=== PATIENT | female | born 1955 | race Caucasian/White ===

== ENCOUNTER 2017-01-03 11:26 | Day surgery (SDC) | payer BC ==
--- NOTE | ~2017-01-03 | OP ---
Record Of Operation [facility] [address] [place]. [address] NAME: SHEBA PARKS : 55 STATUS : [facility]#: [id number] AGE: 61 ADM/REG DATE : 01/03/17 MR#: [id number] REPORT SERV DATE: 01/03/17 DICTATED BY: DARIN PALMER JR. DATE: 01/03/17 REPORT STATUS : Draft TRANSCRIBED BY: MODL DATE: 01/03/17 DATE OF PROCEDURE: 01/03/2017 PREOPERATIVE DIAGNOSIS: End-stage renal disease. POSTOPERATIVE DIAGNOSIS: End-stage renal disease. OPERATION: Left upper extremity access graft (4-7 mm stepped graft). SURGEON: Darin Palmer M.D. VASCULAR FELLOW: Obdulia Tomas MD HISTORY: This is a 61-year-old white female with diabetes and renal failure and failing health. She started dialysis after open heart surgery several months ago. I was asked to place a graft in the left arm. DESCRIPTION OF PROCEDURE: The patient was placed on operating room table. The left arm was prepped and draped in the usual sterile manner. A transverse incision was made just proximal to the left antecubital crease where good search was made for cephalic and basilic vein. The either vein was large enough to use. We then dissected out the brachial artery. We made another incision just distal to the left axillary crease where a reasonable outflow axillary vein was identified. A Evelin-Wick tunneler was then used to tunnel a 4 to 7 mm stepped graft between both incisions. A small end of the graft was sewn to the side of the brachial artery with a running 6-0 Prolene suture. Care was taken to make sure that the small end of the graft was no longer than 2.5 cm. The other end of the graft (the large end) was then sewed in an end-to-end fashion to the outflow axillary vein with a running 6-0 Prolene suture with spatulation. The clamps were removed and there was excellent flow up through the entire graft. Both incisions were closed with 3-0 Vicryl deep and 4-0 Vicryl in the skin. The patient tolerated the procedure well and taken back to the recovery room in fair condition. There were no intraoperative complications. Estimated blood loss was negligible. DF/ROLA Darin Palmer Jr., M.D. / [id number] CC: Darin Palmer Jr., M.D. Record Of [address] [address] NAME: SHEBA PARKS : 55 STATUS : [facility] PAT#: [id number] AGE: 61 ADM/REG DATE : 01/03/17 MR#: [id number] REPORT SERV DATE: 01/03/17 DICTATED BY: DARIN PALMER JR. DATE: 01/03/17 REPORT STATUS : Draft TRANSCRIBED BY: RAYSAL DATE: 01/03/17 Flex Saul M.D.
[~2017-01-03 11:26] MED LIST: ALPHAGAN OPH; APRES50 PO; ARANESP100 IV; ASAB PO; BISR PR; BUM1 PO; CENTRUM PO; CONSTULOSE PO; COREG3 PO; COSOPT OPH; COZ50 PO; DSS PO; FLORASTOR250 MG PO; GLUCOPHAGE1000 MG PO; HEPA50006 SC; IMOD PO; JANUVIA100 MG PO; KDUR10 PO; KLOR-CON M1010 MEQ PO; L20 PO; LEVEMFLXPN SC; LEVEMIR; LEVEMIR SC; LIPITOR20 PO; LIPITOR40 PO; MAALOX PO; MIRALAX POWDER1 PKT PO; MOMUD PO; MULTIPLE VIT PO; MULTIVIT/MIN PO; NEUR300 PO; NEUR600 PO; NEXIUM40 PO; NITROII20C TOP; NORCO1 TA1 PO; NORV5 PO; NOVOLOG; NOVOLOG SC; NOVOPEN SC; PLAVIX PO; PREPARATIO2 PR; PROTONIX PO; PROVHFA INH; REST15 PO; SENTAB PO; T PO; TAPAZOLE5 MG PO; TIMOLOL MAL0.5 % OPH; TRUSOPT2 % OPH; VITC500 PO; XALAT OPH; Z5 PO; ZESTRIL10 MG PO; ZINC220C PO; ZOFRAN4 PO
[2017-01-03] MEDS ORDERED: PRILO (12:32)
[2017-01-03 12:33] LABS: HEMATOCRIT 34.7 % (36.0-48.0); HEMOGLOBIN 10.9 g/dL (12.0-16.0)
[2017-01-03 12:42] LABS: BUN (BLOOD UREA NITROGEN) 18 MG/DL (6-23); CALCIUM, SERUM 8.8 MG/DL (8.5-10.4); CHLORIDE, SERUM 99 MMOL/L (96-112); CO2 (CARBON DIOXIDE) 30 MMOL/L (24-34); CREATININE 4.81 MG/DL (0.55-1.02); GFR AFRICAN AMERICAN 11 ML/MIN (>=60); GFR NON AFRICAN AMERICAN 9 ML/MIN (>=60); GLUCOSE, SERUM 214 MG/DL (60-99); POTASSIUM, SERUM 3.6 MMOL/L (3.5-5.3); SODIUM, SERUM 139 MMOL/L (135-148)
[2017-01-12] MEDS ORDERED: ZOFRAN ODT4 MG PO (17:51)
[2017-01-12] MEDS ORDERED: NITROII20C TOP (17:51)
[2017-01-12] MEDS ORDERED: LIPITOR20 PO (17:51)
[2017-01-12] MEDS ORDERED: ASAB PO (17:52)
[2017-01-12] MEDS ORDERED: KLOR-CON M1010 MEQ PO (17:52)
[2017-01-12] MEDS ORDERED: COZ50 PO (17:52)
[2017-01-12] MEDS ORDERED: PLAVIX PO (17:52)
[2017-01-12] MEDS ORDERED: ALPHAGAN OPH (17:53)
[2017-01-12] MEDS ORDERED: COSOPT OPH (17:53)
[2017-02-26] MEDS ORDERED: PROTONIX PO (17:34)
[2017-02-26] MEDS ORDERED: LEVEMFLXPN SC (17:36)
[2017-02-26] MEDS ORDERED: NOVOPEN SQ (17:37)
[2017-02-26] MEDS ORDERED: PERCOCET1 TAB PO (17:39)
== END 2017-01-03 17:37 | disposition home or self-care (01) ==
LOC: SDC 11:26
PROVIDERS: Surgery
PROC: 03180JD Bypass Left Brachial Artery to Upper Arm Vein with Synthetic Substitute, Open Approach (ICD-10-PCS; principal; 2017-01-03 12:45)
DX: I12.0 Hypertensive chronic kidney disease with stage 5 chronic kidney disease or end stage renal disease (principal); N18.6 End stage renal disease; E11.22 Type 2 diabetes mellitus with diabetic chronic kidney disease; E11.39 Type 2 diabetes mellitus with other diabetic ophthalmic complication; M19.90 Unspecified osteoarthritis, unspecified site; H40.9 Unspecified glaucoma; Z99.2 Dependence on renal dialysis; Z95.1 Presence of aortocoronary bypass graft; Z88.4 Allergy status to anesthetic agent; Z88.5 Allergy status to narcotic agent; Z79.82 Long term (current) use of aspirin; Z79.02 Long term (current) use of antithrombotics/antiplatelets; Z79.4 Long term (current) use of insulin; Z79.899 Other long term (current) drug therapy
CPT/HCPCS: 36830; 80048; 82962; 85014; 85018; C1768; J0690; J2370; J3010

== ENCOUNTER 2017-01-12 18:19 | Inpatient (IN) | payer BC ==
--- NOTE | ~2017-01-12 | CN ---
Consultation Report [facility] [address] [place]. [address] NAME: SHEBA PARKS : 55 STATUS : ADM IN PAT#: [id number] AGE: 61 ADM/REG DATE : 01/12/17 MR#: [id number] REPORT SERV DATE: 01/13/17 DICTATED BY: DEANNA STEWARD DATE: 01/13/17 REPORT STATUS : Draft TRANSCRIBED BY: MODL DATE: 01/13/17 CONSULTATION REPORT. DATE OF CONSULTATION: 01/13/2017 Deanna Steward GEAR CHANGER with [facility], Thor[facility], Vascular surgeons. REASON FOR CONSULTATION: Possible sternal wound infection. HISTORY OF PRESENT ILLNESS: This is a pleasant 61-year-old female who is status post urgent CAB x4 on 11/24/[address] Flores. She also has a history of end-stage renal disease, now on dialysis. She has had a slowly healing sternal wound and reports that it opened up just about a week ago and started draining. She is evaluated by Renal in their office and the decision was made to admit her to the hospital for a sternal wound infection. She is currently on dialysis. She is afebrile with normal white count. She is little bit lethargic, but arousable. She is on cefepime and vancomycin per Nephrology with wound cultures currently pending. PAST MEDICAL HISTORY: Coronary artery disease, status post CAB; pulmonary hypertension; type 2 diabetes mellitus; end-stage renal disease; sleep apnea; hypertension. SOCIAL HISTORY: No tobacco or alcohol abuse or use of illicit drugs. She has good family support. SURGICAL HISTORY: Left knee surgery, hysterectomy, tonsillectomy, cataract surgery. HOME MEDICATIONS: Aspirin 81 mg per day, atorvastatin 20 mg p.o. daily, Alphagan drops one drop ophthalmically twice a day, Plavix 75 mg p.o. daily, dorzolamide one drop ophthalmically twice a day, losartan 50 mg p.o. daily, nitroglycerin one patch topically daily, Zofran 4 mg p.o. q.4 hours as needed, potassium chloride 10 mEq p.o. daily. ALLERGIES: FENTANYL, VERSED, AND MOST NARCOTICS AND BENZODIAZEPINES. REVIEW OF SYSTEMS: 12-point review of system was obtained and is negative other than HPI. PHYSICAL EXAMINATION: VITAL SIGNS: Temperature of 98.4, heart rate 85, blood pressure 128/62, respiratory rate 18, and O2 saturation 96% on room air. GENERAL: Pleasant female, in no acute distress. Lethargic. NEURO: Alert and oriented x3. Pupils exhibit PERRLA. HEENT: Head normocephalic and atraumatic. Sclerae clear. NECK: Supple. LUNGS: Clear to auscultation bilaterally with normal effort. CARDIAC: S1, S2. No murmurs, rubs, or gallops. Consultation Report [facility] [id number] [address] NAME: SHEBA PARKS : 55 STATUS : ADM IN [facility]#: [id number] AGE: 61 ADM/REG DATE : 01/12/17 MR#: [id number] REPORT SERV DATE: 01/13/17 DICTATED BY: DEANNA STEWARD DATE: 01/13/17 REPORT STATUS : Draft TRANSCRIBED BY: ROLA DATE: 01/13/17 ABDOMEN: Soft, obese, and nontender with active bowel sounds. EXTREMITIES: Free of cyanosis, clubbing, or edema. INCISION: There were several small areas of pinhole dehiscence along the middle portion of the sternal incision. There are also small areas of bridging of the skin between these areas that could break open with any type of stress. There is also tunneling between these dehisced areas, but that it does not go very deep. The bottom area of dehiscence tunnels approximately 1 cm toward the bottom of her sternal incision. There is a moderate amount of purulent drainage coming from the wound LABS: White blood cell count 6.1, hemoglobin 9.2, hematocrit 28, platelets 171. Sodium 139, potassium 3.8, chloride 100, bicarbonate 30, BUN 28, creatinine 5.3, and glucose 119. ASSESSMENT AND PLAN: This 61-year-old female who is two months out from bypass surgery. She has end-stage renal disease and diabetes and has had a poorly healing sternal wound, which has recently started to open up and does appear to be infectious, although she is not showing systemic signs of infection at this time. Currently, she is on broad- spectrum antibiotics. I would continue those for now. We will consult Wound Team to see if they can place a VAC pack. Discussed the plan of care with Dr. Flores. Would cover the area with Aquacel dressing and a dry dressing for now until Wound Team is able to evaluate her. We will get a CT scan of her chest without contrast to rule out any type of osteomyelitis or deeper sternal infection. We will hold the Plavix for now anticipating an eventual washout of her sternal incision. We would like to thank you for the consultation. JOHN/ROLA Deanna Steward NP / [id number] CC: Carissa Thayer M.D.
--- NOTE | ~2017-01-12 | DS ---
Discharge Summary [facility] [address] [place]. [address] NAME: SHEBA PARKS : 55 STATUS : DIS IN PAT#: [id number] AGE: 61 ADM/REG DATE : 01/12/17 MR#: [id number] REPORT SERV DATE: 02/06/17 DICTATED BY: OSKAR BARRON DATE: 02/05/17 REPORT STATUS : Draft TRANSCRIBED BY: ROLA DATE: 02/05/17 Data Collection from hospitalization DISCHARGE DIAGNOSES: 1. Infected sternal wound after coronary artery bypass grafting, status post incision and drainage of sternotomy wound with debridement of sternum. 2. Type 2 diabetes mellitus. 3. Hypertension. 4. End-stage renal disease. 5. Hyperlipidemia. 6. Coronary artery disease. CONSULTATIONS: 1. Marek Flores M.D. 2. Dakota Bernard M.D. 3. Salvatore Xiong M.D. PROCEDURES: 1. Incision and drainage of the sternotomy wound with debridement of sternum with pulse lavage irrigation and VAC pack wound dressing, 01/15/2017. 2. Delayed primary closure, sternectomy wound with bilateral pectoralis muscle flaps over subpectoral drain, 01/19/2017. 3. Venous Doppler ultrasound of the left upper extremity, 01/13/2017. 4. CT scan of the chest without contrast, 01/13/2017. DISCHARGE MEDICATIONS: 1. Vitamin C 1000 mg twice a day. 2. Aspirin 81 mg daily. 3. Lipitor 20 mg at bedtime. 4. Dulcolax 10 mg per rectum daily. 5. Brimonidine one drop twice a day. 6. Maxipime 2 g IV on Mondays, Wednesdays, and Fridays at 6:00 p.m. as instructed. 7. Cosopt one drop twice a day as instructed. 8. NovoLog injection insulin as instructed. 9. Cozaar 50 mg twice a day. 10.Protonix 40 mg before breakfast. 11.MiraLAX powder one packet daily. 12.Orazinc 220 mg daily. 13.Proventil 3 mL via inhaler every 6 hours as needed. 14.Levemir 5 units subcutaneously at bedtime. 15.Tylenol 650 mg orally or rectally every 4 hours as needed. 16.Mylanta 30 mL as needed. 17.Zofran 4 mg every 4 hours as needed. 18.Milk of magnesia 30 mL daily as needed. 19.Zofran 4 mg every 4 hours as needed. 20.Percocet 5/325 mg half to one tablet every 6 hours as needed. 21.Proventil 3 mL via inhaler as needed. Discharge Summary [facility] [address] [place]. [address] NAME: SHEBA PARKS : 55 STATUS : DIS IN PAT#: [id number] AGE: 61 ADM/REG DATE : 01/12/17 MR#: [id number] REPORT SERV DATE: 02/06/17 DICTATED BY: OSKAR BARRON DATE: 02/05/17 REPORT STATUS : Draft TRANSCRIBED BY: ROLA DATE: 02/05/17 CONDITION AT DISCHARGE: Stable. DISPOSITION: The patient was discharged to [facility] on an 1800-calorie cardiac/diabetic diet with activities as instructed. HOSPITAL COURSE: This is a 61-year-old female who has a history of end-stage renal disease, diabetes mellitus, hypertension, and coronary artery disease with a history of coronary artery bypass grafting in November 2016. She also has hyperlipidemia. She presented to the emergency room with complaints of sternal wound drainage. She said that she saw Dr. Flores on 01/01/2017 and the wound was healing nicely without any problems. Approximately one week prior to this admission she had a small area on the inferior portion of the wound that began to open and drain. Drainage increased significantly and her said that there were unable to stop it. She apparently received unknown antibiotics on the day prior to admission at dialysis and then came to the emergency room at this time due to these problems. Her chest x-ray showed no acute findings. Creatinine level was 4.6, potassium was 3.9. She denied any fever or other complaints regarding her sternal wound. She was having significant pain and swelling in the left upper extremity. She said that she had an AV graft placed by Dr. Palmer approximately a week prior to this admission. She was admitted to the hospital at this time for further evaluation and treatment. Upon admission, blood cultures were obtained as well as wound cultures. She was started on cefepime and vancomycin. Her home Percocet was continued. The following day, she was seen by Dr. Marek Flores. She was found to have poor wound healing of the sternotomy wound, it was felt that she may need to undergo sternotomy wound debridement in the operating room. Hemodialysis therapy was performed. A CT scan of the chest without contrast was performed as well as a venous Doppler ultrasound of the left upper extremity which was negative. On 01/15/2017, she was taken to the operating room where she underwent the above-mentioned procedure. She tolerated this well. There were no complications. On postop day #1, she had no new complaints. Hemodialysis therapy continued. On 01/18/2017, she was seen by Dr. Salvatore Xiong. Her spirits seemed to have improved. The current therapy was continued. The patient had poor healing down to the muscle, fascia, and sternum with necrosis including bone necrosis. A VAC pack was in place. Operative culture had grown Serratia. Plans were being made for her to undergo an attempt to cover the wound intraoperatively. She has been afebrile. Her chest x-ray showed no active disease. She was seen by Dr. Dakota Bernard, he felt that if all the infected bone was removed then we would treat this as just a soft tissue infection, so that the duration of antibiotics would be shorter, even two to three weeks. The Serratia was quite sensitive to antibiotics with her multiple options. We could use an antibiotic that was dosed in dialysis which may be easier for the patient. For now, we would continue with cefepime, but he felt we could stop the vancomycin postoperatively following closure. On 01/18/2017, she had no new complaints. Chest x-ray looked okay. Hemodialysis therapy was performed. There were several small areas of pinhole dehiscence along the middle portion of the sternal incision. There were small areas of bruising of skin between these areas that could break open. It was tunneling between dehisced areas, but very superficial. She had an episode of elevated blood pressure in the setting of her sternal debridement. Her losartan had been increased. Her clonidine would be added if needed. Aspirin and Discharge Summary [address] [place]. [address] NAME: SHEBA PARKS : 55 STATUS : DIS IN PAT#: [id number] AGE: 61 ADM/REG DATE : 01/12/17 MR#: [id number] REPORT SERV DATE: 02/06/17 DICTATED BY: OSKAR BARRON DATE: 02/05/17 REPORT STATUS : Draft TRANSCRIBED BY: MODL DATE: 02/05/17 Plavix had been continued. She was evaluated by Occupational Therapy. She was taken back to the operating room where she underwent the above-mentioned procedure by Dr. Marek Flores. She tolerated this well. There were no complications. Postoperatively, she was seen by Dr. Darin Palmer. The patient had an AV graft placed by [facility] approximately a week prior to this admission. She had been placed for dialysis. She has mild hand steal syndrome. The left hand was very warm. There was a positive Doppler flow in the left radial artery. She was to follow up with him in the office in two to three weeks. She had no complaints at this time with regard to the left hand or arm. On the , hemodialysis therapy continued. She did have some pain in the sternal wound. Her current treatment continued. Her appetite was beginning to improve. Her pain began to decrease. She was evaluated by Occupational and Physical Therapy. On 01/23/2017, she has been participating with Occupational and Physical Therapy. She underwent diabetes education. She had no new complaints. Drains were in place. She remained afebrile. The next day, discharge planning was performed. She tolerated hemodialysis therapy well. O2 saturation was 98% on room air. Her drain was removed. On 01/25/2017, she continued to progress. Discharge instructions were given. Due to her improved and stable condition, she was discharged to [facility] with the above-stated instructions. Information collected by: Yenny Gong I submit the above information as my discharge summary. TG/ROLA Oskar Barron M.D. / [id number] CC: Carissa Thayer M.D. Paul Cornea, M.D. Stephen Martin, M.D. Alexander Stratienko, M.D. Daniel Fisher Jr., M.D. [facility]
--- NOTE | ~2017-01-12 | CN ---
Consultation Report [facility] [address] [place]. [address] NAME: SHEBA PARKS : 55 STATUS : ADM IN PAT#: [id number] AGE: 61 ADM/REG DATE : 01/12/17 MR#: [id number] REPORT SERV DATE: 01/17/17 DICTATED BY: DAKOTA BARRETT DATE: 01/17/17 REPORT STATUS : Draft TRANSCRIBED BY: MODRonnie DATE: 01/17/17 INFECTIOUS DISEASE CONSULT DATE OF CONSULTATION: REASON FOR CONSULT: Sternal osteomyelitis. HISTORY OF PRESENT ILLNESS: A 61 years old white lady with end-stage renal disease, on hemodialysis, coronary artery disease, status post CABG in November 2016, pulmonary hypertension, diabetes, sleep apnea, glaucoma who was admitted for sternal incision and drainage. She had urgent CABG x4, including MARK to LAD on the 11/24/2016. She had a left IJ PermCath placed on 11/27/2016. She was discharged to rehab on 12/06/2016 only to be readmitted for five days on 12/09/2016 for bradycardia. On 01/03/2017, she had a left arm hemodialysis graft. On 01/12/2017, she was admitted for drainage at the lower sternal incision. Apparently, the wound opened just about a week prior but there is a lot of drainage. She was started on vancomycin and cefepime. A CT scan without contrast showed dehiscence of the lower sternal wound and a slightly nodular liver. The patient had no fever or chills. No nausea or vomiting. No shortness of breath. No urinary symptoms. Wound culture grew Serratia quite sensitive to antibiotics, resistant only to Ancef and cefuroxime. On 01/15/2017, she was taken to the operating room. There was poor healing down to the muscle fascia and sternum with necrosis including bone necrosis. I understand she had sternal resection and soft tissue debridement. A Vac-Pac was put on. Operative culture grew the same Serratia. Tomorrow, she is supposed to have attempt to cover the wound intraoperatively. She has been afebrile. Chest x-ray showed no active disease. Lab work shows a WBC of 8, hemoglobin 8, segments 57, and bands 1. PAST MEDICAL HISTORY: As I mentioned above plus history of glaucoma and cataract surgery, hysterectomy, and left knee surgery. SOCIAL HISTORY: She is . ALLERGIES: NONE TO ANTIBIOTICS. FAMILY HISTORY: Of diabetes, hypertension, and heart disease. MEDICATIONS ON ADMISSION: Aspirin, Lipitor, Alphagan eye drops, Plavix, Cosopt ophthalmic solution, losartan, and potassium. PHYSICAL EXAMINATION: GENERAL: On exam, she is sleepy but arousable. HEART: Regular rhythm. LUNGS: Decreased sounds but poor inspiratory effort due to the chest wound. No wheezing. Deep chest wound covered with a Vac-Pac. Consultation Report [address] [address] NAME: SHEBA PARKS : 55 STATUS : ADM IN [facility]#: [id number] AGE: 61 ADM/REG DATE : 01/12/17 MR#: [id number] REPORT SERV DATE: 01/17/17 DICTATED BY: DAKOTA BARRETT DATE: 01/17/17 REPORT STATUS : Draft TRANSCRIBED BY: ROLA DATE: 01/17/17 ABDOMEN: Soft. EXTREMITIES: Feet and hands are cool to touch. Left arm with some edema and ecchymosis around the surgical site. Left chest IJ PermCath site without erythema. ASSESSMENT AND PLAN: 1. 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 I understand she had a sternectomy. 2. Urgent CABG on 11/24/2016 including left internal mammary artery to LAD graft. 3. End-stage renal disease, on hemodialysis. She has two accesses but only the left IJ PermCath is used so far. 4. Diabetes. If all infected bone was removed, then we will treat just as a soft tissue infection so that duration of antibiotics would be shorter, even two to three weeks. The Serratia is quite sensitive to antibiotics with her multiple options. We could use an antibiotic that is dosed in dialysis which may be easier for the patient. For now, continue with the cefepime but I think we could stop the vancomycin postop tomorrow. PC/RAYSAL Dakota Barrett M.D. / [id number] CC: Carissa Thayer M.D.
--- NOTE | ~2017-01-12 | HP ---
History And Physical [place] [id number] [facility] [place]. [address] NAME: SHEBA OJEDA : 55 STATUS : ADM IN [facility]#: [id number] AGE: 61 ADM/REG DATE : 01/12/17 MR#: [id number] REPORT SERV DATE: 01/15/17 DICTATED BY: NATALIA CLAUDIO DATE: 01/12/17 REPORT STATUS : Draft TRANSCRIBED BY: MODL DATE: 01/12/17 DATE OF ADMISSION: 01/12/2017 CHIEF COMPLAINT: Drainage from sternal wound. HISTORY OF PRESENT ILLNESS: Ms Ojeda is a pleasant 61-year-old white female with past medical history of recent ESRD, diabetes mellitus, hypertension, coronary artery disease with history of CABG 11/24/2016 as well as hyperlipidemia, who presents to the ER with complaints of sternal wound drainage. She states that she saw Dr. Flores on 01/01/2017 and the wound was healing nicely without any problems. Approximately one week ago, she had a small area on the inferior portion of the wound that began to open and drain. The drainage has increased significantly and her states "we have been unable to stop it." She apparently received unknown antibiotics yesterday at dialysis and came onto the ER today due to problems outlined above. On presentation, she had a chest x-ray, which had no acute findings. WBC is 6.2, and BUN and creatinine were 22 and 4.6 with a potassium of 3.9. She denies any fever or other complaints regarding her sternal wound. She is having significant pain and swelling in her left upper extremity. She states that she had an AV graft placed by Dr. Darin Palmer approximately a week ago. PAST MEDICAL HISTORY: 1. End-stage renal disease with recent initiation of dialysis with right IJ PermCath. She has a left upper extremity AV graft placed recently as well. She dialyzes Sunday, , Sunday at [facility]. 2. Diabetes mellitus. 3. Hypertension. 4. Coronary artery disease with history of CABG on 11/24/2016. 5. Hyperlipidemia. PAST SURGICAL HISTORY: 1. CABG. 2. Right IJ PermCath placement. 3. Hysterectomy. 4. Left knee surgery, not otherwise specified. 5. Cataract removal. 6. Left upper extremity AV graft placement. ALLERGIES: BENZODIAZEPINES, IV NARCOTICS, VERSED. SHE IS TAKING PERCOCET WITH NO PROBLEMS. SOCIAL HISTORY: No alcohol, tobacco, or drug use. She is with a supportive . FAMILY HISTORY: Mother had congestive heart failure, two years ago. Father is living at age 84, has diabetes and hypertension. REVIEW OF SYSTEMS: All systems reviewed and negative excluding those mentioned and highlighted in history of present illness. History And Physical [address] [address] NAME: SHEBA OJEDA : 55 STATUS : ADM IN [facility]#: [id number] AGE: 61 ADM/REG DATE : 01/12/17 MR#: [id number] REPORT SERV DATE: 01/15/17 DICTATED BY: NATALIA CLAUDIO DATE: 01/12/17 REPORT STATUS : Draft TRANSCRIBED BY: ROLA DATE: 01/12/17 HOME MEDICATIONS: 1. Zofran 4 mg q.4h p.r.n. nausea, vomiting. 2. Potassium chloride 10 mEq daily. 3. Plavix 75 daily. 4. Losartan 50 mg daily. 5. Atorvastatin 20 mg daily. 6. Nitroglycerin patch 0.4 mg p.r.n. chest pain. 7. Aspirin 81 mg daily. 8. NovoLog insulin 5 units with meals. 9. Levemir 7 units subcu at bedtime. PHYSICAL EXAMINATION: VITAL SIGNS: Blood pressure 150/70 at bedside, pulse 80s, respiratory rate 18. GENERAL: This is a pleasant white female resting comfortably, in no acute distress. HEENT: Normocephalic, atraumatic. Oropharynx clear. No exudate. NECK: Supple. No JVD or thyromegaly. No carotid bruits. Trachea midline. No stridor. CARDIOVASCULAR: Regular rate and rhythm. S1, S2 without rubs or gallops. Point of maximal impulse nondisplaced. RESPIRATORY: Clear to auscultation bilaterally. No wheeze, rhonchi, tachypnea, or accessory muscles in use. GI: Abdomen soft, nontender, nondistended. No hepatosplenomegaly appreciated. EXTREMITIES: No cyanosis, clubbing. Lower extremities 1+ pretibial edema. Left upper extremity has 1 to 2+ pitting edema extending up to her shoulder. SKIN: She has some skin breakdown at the lower portion of her sternal wound, which is draining serosanguineous fluid. Left arm has ecchymoses over her graft. There is a bruit and thrill over her graft. LYMPH: No supraclavicular, cervical, inguinal, axillary adenopathy. NEURO: Cranial nerves 2 through 12 grossly intact. Motor sensory examinations within normal limits. LABS AND DIAGNOSTIC DATA: WBC 6.2, hemoglobin 10.2, hematocrit 32.2, platelets 166, neutrophils 60.3%. Sodium 138, potassium 3.9, chloride 100, bicarb 29, BUN 22, creatinine 4.6, glucose 211. ASSESSMENT: 1. Sternal wound infection, status post coronary artery bypass graft, 11/24/2016. 2. End-stage renal disease with recent hemodialysis initiation. 3. Swollen left upper extremity, status post arteriovenous graft placement. 4. Hypertension. 5. Diabetes mellitus type 2. PLAN: 1. Consult Dr. Flores for further evaluation and treatment of sternal wound. 2. Check blood cultures and sensitivities and wound cultures and sensitivities and start vancomycin and cefepime. 3. Hemodialysis, 01/13/2017. History And Physical [address] [address] NAME: SHEBA OJEDA : 55 STATUS : ADM IN [facility]#: [id number] AGE: 61 ADM/REG DATE : 01/12/17 MR#: [id number] REPORT SERV DATE: 01/15/17 DICTATED BY: NATALIA CLAUDIO DATE: 01/12/17 REPORT STATUS : Draft TRANSCRIBED BY: MODL DATE: 01/12/17 4. Home medications. 5. We will continue her home Percocet as needed. This has not been an allergy and she has tolerated this without event. Partner to see in the morning. [facility]/RAYSAL Natalia Claudio M.D. / [id number] CC: Carissa Thayer M.D.
--- NOTE | ~2017-01-12 | CN ---
Consultation Report [place] [id number] [facility] [place]. [address] NAME: SHEBA PARKS : 55 STATUS : ADM IN PAT#: [id number] AGE: 61 ADM/REG DATE : 01/12/17 MR#: [id number] REPORT SERV DATE: 01/15/17 DICTATED BY: MAREK CAMARGO DATE: 01/15/17 REPORT STATUS : Draft TRANSCRIBED BY: MODL DATE: 01/15/17 CONSULTATION DATE OF CONSULTATION: 01/13/2017 PERTINENT HISTORY: The patient is a 61-year-old female, approximately seven weeks status post coronary artery bypass grafting procedure with known history of severe diabetes mellitus and renal insufficiency, on dialysis at present, who returns to the hospital for multiple medical reasons and found to have poor wound healing of the sternotomy wound. Consultation with Thoracic Surgery was then obtained. PAST MEDICAL HISTORY: Significant for the coronary artery bypass grafting performed on 11/24/2016. The patient has a history of hypertension, coronary artery disease, hyperlipidemia, diabetes mellitus, renal insufficiency, and COPD. SOCIAL HISTORY: Positive for tobacco and ethanol use. FAMILY HISTORY: Noncontributory. REVIEW OF SYSTEMS: Significant for increased discomfort and drainage from the midportion of sternotomy wound. Denied fever or chills. PHYSICAL EXAMINATION: VITAL SIGNS: Afebrile. Blood pressure 140/70, heart rate is 70. GENERAL: She is in no acute distress. Alert and oriented x3. NEUROLOGIC: Intact. NECK: No bruits noted in her neck. No adenopathy of her neck. CHEST: Had breath sounds bilaterally. HEART: Regular rate and rhythm. No obvious murmur. Sternotomy wound showed eschar along the mid lower portion. The sternum appeared to be stable, difficult to examine, but relatively nontender, no cellulitis, no purulent discharge from the wound. ABDOMEN: Soft and nontender without masses. EXTREMITIES: Warm and dry. : Normal. SKIN: Showed no rash. IMPRESSION: At this time is poor wound healing of the sternotomy wound status post coronary artery bypass grafting. The plan is to proceed with the sternotomy wound debridement in the operating room. /MODL Consultation Report [place] [id number] [facility] [place]. [address] NAME: SHEBA PARKS : 55 STATUS : ADM IN PAT#: [id number] AGE: 61 ADM/REG DATE : 01/12/17 MR#: [id number] REPORT SERV DATE: 01/15/17 DICTATED BY: MAREK CAMARGO DATE: 01/15/17 REPORT STATUS : Draft TRANSCRIBED BY: ROLA DATE: 01/15/17 Marek Camargo M.D. / [id number] CC: Carissa Thayer M.D.
--- NOTE | ~2017-01-12 | OP ---
Record Of Operation [facility] [address] [place]. [address] NAME: SHEBA PARKS : 55 STATUS : ADM IN [facility]#: [id number] AGE: 61 ADM/REG DATE : 01/12/17 MR#: [id number] REPORT SERV DATE: 01/19/17 DICTATED BY: MAREK FLORES DATE: 01/19/17 REPORT STATUS : Draft TRANSCRIBED BY: MODL DATE: 01/19/17 DATE OF PROCEDURE: 01/19/2017 PREOPERATIVE DIAGNOSIS: Status post debridement of the sternotomy wound with sternectomy. POSTOPERATIVE DIAGNOSIS: Status post debridement of the sternotomy wound with sternectomy, now ready for delayed primary closure. OPERATIVE PROCEDURE: Delayed primary closure, sternectomy wound, with bilateral pectoralis muscle flaps, over subpectoral drains. OPERATIVE SURGEON: Marek Flores M.D. ANESTHESIA: General endotracheal anesthesia, AA. DRAINS PLACED: A 24-Estonian Melvin drains x2 in the subpectoral space. OPERATIVE PROCEDURE: The patient was taken to the operating room and placed in supine position. Anesthesia was obtained. The patient was prepped and draped in usual fashion. The previous opened sternotomy wound with sternectomy and was then debrided of devitalized tissue. Bilateral pectoralis muscle flaps were developed with electrocautery. The space was irrigated with 2 L of pulse lavage saline. Hemostasis was obtained with electrocautery. A #24 Melvin drains x2 were placed in the subpectoral space. A #2 Tevdek retention sutures were placed x4. The midline fascia was approximated with running 0 Stratafix suture. The retention sutures were then tied. The skin was approximated with 3-0 nylon vertical mattress sutures and interrupted type, and skin clips. A sterile dressing was applied. The patient tolerated the procedure well and was taken back to the recovery room in stable condition. ESAU/ROLA Marek Flores M.D. / [id number] CC: Carissa Thayer M.D.
--- NOTE | ~2017-01-12 | OP ---
Record Of Operation [facility] [address] [place]. [address] NAME: SHEBA PARKS : 55 STATUS : ADM IN PAT#: [id number] AGE: 61 ADM/REG DATE : 01/12/17 MR#: [id number] REPORT SERV DATE: 01/15/17 DICTATED BY: MAREK FLORES DATE: 01/15/17 REPORT STATUS : Draft TRANSCRIBED BY: MODL DATE: 01/15/17 DATE OF PROCEDURE: 01/15/2017 PREOPERATIVE DIAGNOSES: Status post coronary bypass grafting, diabetes mellitus and chronic renal disease, now with poor sternotomy wound healing. POSTOPERATIVE DIAGNOSES: Status post coronary bypass grafting, diabetes mellitus and chronic renal disease, now with poor sternotomy wound healing. No obvious signs of sternal infection but with necrotic sternum. OPERATIVE PROCEDURE: Incision and drainage of the sternotomy wound with debridement of sternum, pulse lavage irrigation, and Vac-Pac wound dressing. OPERATIVE SURGEON: Marek Flores M.D. ANESTHESIA: General anesthesia, AA. DRAINS: No drains were placed. OPERATIVE PROCEDURE: The patient was taken to the operating room, placed in supine position. Anesthesia was obtained. The patient was prepped and draped in usual fashion. Incision was made through the old sternotomy incision. There is poor wound healing in the mid to lower portion. The wound was opened and found to have no sign of purulence. No sign of cellulitis with very poor wound healing. Along the entire length, the subcutaneous space was debrided. Suture material was removed. Dissection was continued to the level of the pectoralis major fascia which also showed poor wound healing. This layer closure was opened exposing the sternum which showed very poor healing of the sternum with necrotic bone. The sternal cables were removed. Necrotic bone was all debrided with rongeur and curette. Hemostasis was obtained with electrocautery. Soft tissue was debrided of any devitalized tissue. All suture material was debrided. The wound was irrigated with 3 L of pulse lavage saline. A Vac-Pac sponge large size was cut to the appropriate dimensions, placed within the wound. Benzoin was placed along the edges of the skin, and Vac-Pac dressing was applied in the usual manner and placed to -125 suction. The Vac-Pac dressing held with negative pressure. The patient tolerated procedure well. She was taken back to operating room and taken to recovery room in stable condition. ESAU/ROLA Marek Flores M.D. / [id number] CC: Record Of Operation [address] [place] [address] NAME: SHEBA PARKS : 55 STATUS : ADM IN PAT#: [id number] AGE: 61 ADM/REG DATE : 01/12/17 MR#: [id number] REPORT SERV DATE: 01/15/17 DICTATED BY: MAREK FLORES DATE: 01/15/17 REPORT STATUS : Draft TRANSCRIBED BY: ROLA DATE: 01/15/17 James Macdonald M.D.
[2017-01-12 15:37] LABS: BASOPHILS 0.2 %; BASOPHILS ABSOLUTE 0.01 10/3/uL (0.0-0.16); EOSINOPHILS 1.6 %; ER CBC TAT 0 Hrs 09 Mins; HEMATOCRIT 32.2 % (36.0-48.0); HEMOGLOBIN 10.2 g/dL (12.0-16.0); IMMATURE GRANULOCYTES 0.2 %; LYMPHOCYTES 21.9 %; LYMPHOCYTES ABSOLUTE 1.36 10/3/uL (0.67-4.30); MEAN CORPUS HGB CONC 31.7 g/dL (32.0-36.0); MEAN CORPUSCULAR HEMOGLOB 30.4 pg (26.0-34.0); MEAN PLATELET VOLUME 9.7 fL (9.2-13.0); MONOCYTES 15.8 %; MONOCYTES ABSOLUTE 0.98 10/3/uL (0.21-1.20); NEUTROPHILS 60.3 %; NEUTROPHILS ABSOLUTE 3.75 10/3/uL (2.02-8.40); RBC DISTRIBUTION WIDTH 16.1 % (12.0-16.0); WHITE BLOOD CELLS 6.2 10/3/uL (4.5-10.5)
[2017-01-12 15:38] LABS: MEAN CORPUSCULAR VOLUME 96.1 fL (80-100); PLATELET COUNT 166 10/3/uL (150-400); RED CELL COUNT 3.35 10/6/uL (4.0-5.6)
[2017-01-12 15:39] LABS: IMMATURE GRANULOCYTES ABSOLUTE 0.01 10/3/uL (0.0-0.11); MANUAL DIFF NO %
[2017-01-12 15:44] LABS: INTERNATIONAL NORMAL RATI 1.2 UNITS (-); PROTIME (NOT ORD) 15.2 SEC (12.0-14.5)
[2017-01-12 15:53] LABS: BUN (BLOOD UREA NITROGEN) 22 MG/DL (6-23); CALCIUM, SERUM 8.6 MG/DL (8.5-10.4); CHEST PAIN PROFILE TAT 0 Hrs 25 Mins; CHLORIDE, SERUM 100 MMOL/L (96-112); CO2 (CARBON DIOXIDE) 29 MMOL/L (24-34); CREATININE 4.66 MG/DL (0.55-1.02); GFR AFRICAN AMERICAN 11 ML/MIN (>=60); GFR NON AFRICAN AMERICAN 9 ML/MIN (>=60); GLUCOSE, SERUM 211 MG/DL (60-99); POTASSIUM, SERUM 3.9 MMOL/L (3.5-5.3); SODIUM, SERUM 138 MMOL/L (135-148); TROPONIN I <0.02 NG/ML (<0.05)
[2017-01-12 16:07] LABS: BAND NEUTROPHILS 1 %; EOSINOPHILS 1 %; EOSINOPHILS ABSOLUTE (CALC) 0.06 10/3/uL (0.0-0.53); ER DIFF TAT 0 Hrs 39 Mins; LYMPHOCYTES 14 %; LYMPHOCYTES ABSOLUTE (CALC) 0.87 10/3/uL (0.67-4.30); MONOCYTES 8 %; NEUTROPHILS ABSOLUTE (CALC) 4.77 10/3/uL (2.02-8.40); PLATELET ESTIMATE ADQ (ADEQUATE); SEGMENTED NEUTROPHIL (0) 76 %; TOTAL NUCLEATED CELLS 100
[2017-01-12 16:08] LABS: HELMET CELLS OCC (0-2/OIF)
[~2017-01-12 18:19] MED LIST changes: +PRILO; +ZOFRAN ODT4 MG PO
[2017-01-13 08:58] LABS: BASOPHILS 0.3 %; BASOPHILS ABSOLUTE 0.02 10/3/uL (0.0-0.16); EOSINOPHILS 2.5 %; EOSINOPHILS ABSOLUTE 0.15 10/3/uL (0.0-0.53); HEMOGLOBIN 9.2 g/dL (12.0-16.0); IMMATURE GRANULOCYTES 0.2 %; IMMATURE GRANULOCYTES ABSOLUTE 0.01 10/3/uL (0.0-0.11); LYMPHOCYTES 22.1 %; LYMPHOCYTES ABSOLUTE 1.34 10/3/uL (0.67-4.30); MEAN CORPUS HGB CONC 32.9 g/dL (32.0-36.0); MEAN CORPUSCULAR VOLUME 94.3 fL (80-100); MEAN PLATELET VOLUME 9.8 fL (9.2-13.0); MONOCYTES 15.5 %; MONOCYTES ABSOLUTE 0.94 10/3/uL (0.21-1.20); NEUTROPHILS 59.4 %; PLATELET COUNT 171 10/3/uL (150-400); RBC DISTRIBUTION WIDTH 16.2 % (12.0-16.0); RED CELL COUNT 2.97 10/6/uL (4.0-5.6); WHITE BLOOD CELLS 6.1 10/3/uL (4.5-10.5)
[2017-01-13 09:02] LABS: MANUAL DIFF NO %
[2017-01-13 09:18] LABS: ALBUMIN 2.2 G/DL (3.5-5.0); BUN (BLOOD UREA NITROGEN) 28 MG/DL (6-23); CALCIUM, SERUM 8.4 MG/DL (8.5-10.4); CHLORIDE, SERUM 100 MMOL/L (96-112); CO2 (CARBON DIOXIDE) 30 MMOL/L (24-34); CREATININE 5.32 MG/DL (0.55-1.02); GFR AFRICAN AMERICAN 9 ML/MIN (>=60); GFR NON AFRICAN AMERICAN 8 ML/MIN (>=60); GLUCOSE, SERUM 119 MG/DL (60-99); PHOSPHORUS, SERUM 4.6 MG/DL (2.5-4.5); POTASSIUM, SERUM 3.8 MMOL/L (3.5-5.3); SODIUM, SERUM 139 MMOL/L (135-148)
[2017-01-14 08:16] LABS: ALBUMIN 2.2 G/DL (3.5-5.0); CALCIUM, SERUM 8.5 MG/DL (8.5-10.4); CHLORIDE, SERUM 103 MMOL/L (96-112); CO2 (CARBON DIOXIDE) 27 MMOL/L (24-34); POTASSIUM, SERUM 3.7 MMOL/L (3.5-5.3); SODIUM, SERUM 139 MMOL/L (135-148)
[2017-01-14 08:18] LABS: BUN (BLOOD UREA NITROGEN) 20 MG/DL (6-23); CREATININE 4.09 MG/DL (0.55-1.02); GFR AFRICAN AMERICAN 13 ML/MIN (>=60); GFR NON AFRICAN AMERICAN 11 ML/MIN (>=60); GLUCOSE, SERUM 173 MG/DL (60-99); PHOSPHORUS, SERUM 3.3 MG/DL (2.5-4.5)
[2017-01-15 11:18] LABS: BASOPHILS 0.6 %; BASOPHILS ABSOLUTE 0.03 10/3/uL (0.0-0.16); EOSINOPHILS 5.1 %; EOSINOPHILS ABSOLUTE 0.28 10/3/uL (0.0-0.53); HEMATOCRIT 31.8 % (36.0-48.0); HEMOGLOBIN 10.3 g/dL (12.0-16.0); IMMATURE GRANULOCYTES 0.4 %; IMMATURE GRANULOCYTES ABSOLUTE 0.02 10/3/uL (0.0-0.11); LYMPHOCYTES 32.1 %; LYMPHOCYTES ABSOLUTE 1.75 10/3/uL (0.67-4.30); MANUAL DIFF NO %; MEAN CORPUS HGB CONC 32.4 g/dL (32.0-36.0); MEAN CORPUSCULAR HEMOGLOB 30.9 pg (26.0-34.0); MEAN CORPUSCULAR VOLUME 95.5 fL (80-100); MEAN PLATELET VOLUME 9.7 fL (9.2-13.0); MONOCYTES 14.1 %; MONOCYTES ABSOLUTE 0.77 10/3/uL (0.21-1.20); NEUTROPHILS 47.7 %; PLATELET COUNT 208 10/3/uL (150-400); RBC DISTRIBUTION WIDTH 16.2 % (12.0-16.0); RED CELL COUNT 3.33 10/6/uL (4.0-5.6); WHITE BLOOD CELLS 5.5 10/3/uL (4.5-10.5)
[2017-01-15 11:34] LABS: CALCIUM, SERUM 8.9 MG/DL (8.5-10.4); CHLORIDE, SERUM 101 MMOL/L (96-112); CO2 (CARBON DIOXIDE) 28 MMOL/L (24-34); SODIUM, SERUM 141 MMOL/L (135-148)
[2017-01-15 11:35] LABS: BUN (BLOOD UREA NITROGEN) 35 MG/DL (6-23); CREATININE 5.49 MG/DL (0.55-1.02); GFR AFRICAN AMERICAN 9 ML/MIN (>=60); GFR NON AFRICAN AMERICAN 8 ML/MIN (>=60); GLUCOSE, SERUM 121 MG/DL (60-99); POTASSIUM, SERUM 4.5 MMOL/L (3.5-5.3)
[2017-01-16 08:42] LABS: BASOPHILS 0.3 %; BASOPHILS ABSOLUTE 0.02 10/3/uL (0.0-0.16); EOSINOPHILS 4.1 %; EOSINOPHILS ABSOLUTE 0.28 10/3/uL (0.0-0.53); HEMOGLOBIN 8.9 g/dL (12.0-16.0); IMMATURE GRANULOCYTES 0.3 %; IMMATURE GRANULOCYTES ABSOLUTE 0.02 10/3/uL (0.0-0.11); LYMPHOCYTES 25.9 %; LYMPHOCYTES ABSOLUTE 1.76 10/3/uL (0.67-4.30); MEAN CORPUS HGB CONC 31.8 g/dL (32.0-36.0); MEAN CORPUSCULAR HEMOGLOB 30.4 pg (26.0-34.0); MEAN CORPUSCULAR VOLUME 95.6 fL (80-100); MEAN PLATELET VOLUME 9.9 fL (9.2-13.0); MONOCYTES 18.1 %; MONOCYTES ABSOLUTE 1.23 10/3/uL (0.21-1.20); NEUTROPHILS 51.3 %; NEUTROPHILS ABSOLUTE 3.48 10/3/uL (2.02-8.40); PLATELET COUNT 227 10/3/uL (150-400); RBC DISTRIBUTION WIDTH 16.2 % (12.0-16.0); RED CELL COUNT 2.93 10/6/uL (4.0-5.6); WHITE BLOOD CELLS 6.8 10/3/uL (4.5-10.5)
[2017-01-16 08:49] LABS: MANUAL DIFF NO %
[2017-01-16 08:53] LABS: CALCIUM, SERUM 8.8 MG/DL (8.5-10.4); CHLORIDE, SERUM 104 MMOL/L (96-112); POTASSIUM, SERUM 5.2 MMOL/L (3.5-5.3); SODIUM, SERUM 140 MMOL/L (135-148)
[2017-01-16 08:54] LABS: BUN (BLOOD UREA NITROGEN) 45 MG/DL (6-23); CO2 (CARBON DIOXIDE) 23 MMOL/L (24-34); CREATININE 6.36 MG/DL (0.55-1.02); GFR AFRICAN AMERICAN 8 ML/MIN (>=60); GFR NON AFRICAN AMERICAN 6 ML/MIN (>=60); GLUCOSE, SERUM 93 MG/DL (60-99); PHOSPHORUS, SERUM 5.2 MG/DL (2.5-4.5)
[2017-01-17 04:31] LABS: HEMATOCRIT 26.9 % (36.0-48.0); HEMOGLOBIN 8.3 g/dL (12.0-16.0); MEAN CORPUS HGB CONC 30.9 g/dL (32.0-36.0); MEAN CORPUSCULAR HEMOGLOB 29.9 pg (26.0-34.0); MEAN CORPUSCULAR VOLUME 96.8 fL (80-100); MEAN PLATELET VOLUME 10.3 fL (9.2-13.0); PLATELET COUNT 186 10/3/uL (150-400); RBC DISTRIBUTION WIDTH 16.3 % (12.0-16.0); RED CELL COUNT 2.78 10/6/uL (4.0-5.6); WHITE BLOOD CELLS 8.8 10/3/uL (4.5-10.5)
[2017-01-17 04:33] LABS: MANUAL DIFF YES %
[2017-01-17 04:37] LABS: ALBUMIN 1.8 G/DL (3.5-5.0); CALCIUM, SERUM 8.4 MG/DL (8.5-10.4); CHLORIDE, SERUM 103 MMOL/L (96-112); CO2 (CARBON DIOXIDE) 25 MMOL/L (24-34); GLUCOSE, SERUM 111 MG/DL (60-99); POTASSIUM, SERUM 4.3 MMOL/L (3.5-5.3); SODIUM, SERUM 140 MMOL/L (135-148)
[2017-01-17 04:38] LABS: BUN (BLOOD UREA NITROGEN) 28 MG/DL (6-23); CREATININE 4.49 MG/DL (0.55-1.02); GFR AFRICAN AMERICAN 11 ML/MIN (>=60); GFR NON AFRICAN AMERICAN 10 ML/MIN (>=60); PHOSPHORUS, SERUM 3.9 MG/DL (2.5-4.5)
[2017-01-17 04:45] LABS: BAND NEUTROPHILS 1 %; BASOPHILS 1 %; BASOPHILS ABSOLUTE (CALC) 0.09 10/3/uL (0.0-0.16); EOSINOPHILS 3 %; EOSINOPHILS ABSOLUTE (CALC) 0.26 10/3/uL (0.0-0.53); LYMPHOCYTES 32 %; LYMPHOCYTES ABSOLUTE (CALC) 2.82 10/3/uL (0.67-4.30); MONOCYTES 6 %; MONOCYTES ABSOLUTE (CALC) 0.53 10/3/uL (0.21-1.20); PLATELET ESTIMATE ADQ (ADEQUATE); RBC MORPHOLOGY NORM (NORMAL); SEGMENTED NEUTROPHIL (0) 57 %; TOTAL NUCLEATED CELLS 100
[2017-01-18 04:42] LABS: ALBUMIN 1.9 G/DL (3.5-5.0); ALKALINE PHOSPHATASE 77 U/L (45-117); BUN (BLOOD UREA NITROGEN) 40 MG/DL (6-23); CALCIUM, SERUM 8.6 MG/DL (8.5-10.4); CHLORIDE, SERUM 101 MMOL/L (96-112); CO2 (CARBON DIOXIDE) 26 MMOL/L (24-34); CREATININE 5.64 MG/DL (0.55-1.02); DIRECT BILIRUBIN < 0.1 MG/DL (0.0-0.4); GFR AFRICAN AMERICAN 9 ML/MIN (>=60); GFR NON AFRICAN AMERICAN 8 ML/MIN (>=60); GLUCOSE, SERUM 111 MG/DL (60-99); INDIRECT BILIRUBIN(NOT ORDER) 0.3 MG/DL (0.1-0.9); POTASSIUM, SERUM 4.4 MMOL/L (3.5-5.3); SGOT(AST) 13 U/L (5-40); SGPT(ALT) < 6 U/L (5-65); SODIUM, SERUM 138 MMOL/L (135-148); TOTAL BILIRUBIN 0.4 MG/DL (0-1.2); TOTAL PROTEIN 5.8 G/DL (6.0-8.5)
[2017-01-18 07:15] LABS: BASOPHILS 0.3 %; BASOPHILS ABSOLUTE 0.02 10/3/uL (0.0-0.16); EOSINOPHILS 4.6 %; EOSINOPHILS ABSOLUTE 0.36 10/3/uL (0.0-0.53); HEMATOCRIT 25.6 % (36.0-48.0); HEMOGLOBIN 8.2 g/dL (12.0-16.0); IMMATURE GRANULOCYTES 0.4 %; IMMATURE GRANULOCYTES ABSOLUTE 0.03 10/3/uL (0.0-0.11); LYMPHOCYTES 25.8 %; LYMPHOCYTES ABSOLUTE 2.01 10/3/uL (0.67-4.30); MEAN CORPUSCULAR HEMOGLOB 29.8 pg (26.0-34.0); MEAN PLATELET VOLUME 9.8 fL (9.2-13.0); MONOCYTES 10.5 %; MONOCYTES ABSOLUTE 0.82 10/3/uL (0.21-1.20); NEUTROPHILS 58.4 %; NEUTROPHILS ABSOLUTE 4.56 10/3/uL (2.02-8.40); PLATELET COUNT 220 10/3/uL (150-400); RBC DISTRIBUTION WIDTH 16.2 % (12.0-16.0); RED CELL COUNT 2.75 10/6/uL (4.0-5.6); WHITE BLOOD CELLS 7.8 10/3/uL (4.5-10.5)
[2017-01-18 07:17] LABS: MANUAL DIFF NO %; MEAN CORPUSCULAR VOLUME 93.1 fL (80-100)
[2017-01-18 11:50] LABS: HEMOGLOBIN 8.9 g/dL (12.0-16.0)
[2017-01-18 11:51] LABS: HEMATOCRIT 29.5 % (36.0-48.0)
[2017-01-18 14:00] LABS: BUN (BLOOD UREA NITROGEN) 13 MG/DL (6-23); CALCIUM, SERUM 8.2 MG/DL (8.5-10.4); CHLORIDE, SERUM 107 MMOL/L (96-112); CO2 (CARBON DIOXIDE) 26 MMOL/L (24-34); SODIUM, SERUM 141 MMOL/L (135-148)
[2017-01-18 14:01] LABS: CREATININE 2.51 MG/DL (0.55-1.02); GFR AFRICAN AMERICAN 23 ML/MIN (>=60); GFR NON AFRICAN AMERICAN 20 ML/MIN (>=60); GLUCOSE, SERUM 194 MG/DL (60-99)
[2017-01-19 05:11] LABS: INTERNATIONAL NORMAL RATI 1.1 UNITS (-); PARTIAL THROMBO TIME 30.3 SEC (22.5-37.2); PROTIME (NOT ORD) 14.4 SEC (12.0-14.5)
[2017-01-19 05:17] LABS: BASOPHILS 0.3 %; BASOPHILS ABSOLUTE 0.02 10/3/uL (0.0-0.16); EOSINOPHILS 4.5 %; HEMATOCRIT 26.7 % (36.0-48.0); HEMOGLOBIN 8.6 g/dL (12.0-16.0); IMMATURE GRANULOCYTES 0.4 %; IMMATURE GRANULOCYTES ABSOLUTE 0.03 10/3/uL (0.0-0.11); LYMPHOCYTES 22.3 %; LYMPHOCYTES ABSOLUTE 1.49 10/3/uL (0.67-4.30); MEAN CORPUS HGB CONC 32.2 g/dL (32.0-36.0); MEAN CORPUSCULAR HEMOGLOB 31.4 pg (26.0-34.0); MEAN PLATELET VOLUME 9.8 fL (9.2-13.0); MONOCYTES 14.5 %; MONOCYTES ABSOLUTE 0.97 10/3/uL (0.21-1.20); NEUTROPHILS ABSOLUTE 3.86 10/3/uL (2.02-8.40); PLATELET COUNT 213 10/3/uL (150-400); RBC DISTRIBUTION WIDTH 16.1 % (12.0-16.0); RED CELL COUNT 2.74 10/6/uL (4.0-5.6); WHITE BLOOD CELLS 6.7 10/3/uL (4.5-10.5)
[2017-01-19 05:18] LABS: CALCIUM, SERUM 8.3 MG/DL (8.5-10.4); CHLORIDE, SERUM 108 MMOL/L (96-112); CO2 (CARBON DIOXIDE) 23 MMOL/L (24-34); POTASSIUM, SERUM 4.5 MMOL/L (3.5-5.3); SODIUM, SERUM 144 MMOL/L (135-148)
[2017-01-19 05:19] LABS: MANUAL DIFF NO %; MEAN CORPUSCULAR VOLUME 97.4 fL (80-100)
[2017-01-19 05:25] LABS: BUN (BLOOD UREA NITROGEN) 19 MG/DL (6-23); CREATININE 3.61 MG/DL (0.55-1.02); GFR AFRICAN AMERICAN 15 ML/MIN (>=60); GFR NON AFRICAN AMERICAN 13 ML/MIN (>=60); GLUCOSE, SERUM 124 MG/DL (60-99); PHOSPHORUS, SERUM 2.7 MG/DL (2.5-4.5)
[2017-01-19 11:28] LABS: BASOPHILS 0.1 %; BASOPHILS ABSOLUTE 0.01 10/3/uL (0.0-0.16); EOSINOPHILS 4.7 %; EOSINOPHILS ABSOLUTE 0.34 10/3/uL (0.0-0.53); HEMATOCRIT 26.8 % (36.0-48.0); HEMOGLOBIN 8.3 g/dL (12.0-16.0); IMMATURE GRANULOCYTES 0.4 %; IMMATURE GRANULOCYTES ABSOLUTE 0.03 10/3/uL (0.0-0.11); LYMPHOCYTES 22.4 %; LYMPHOCYTES ABSOLUTE 1.61 10/3/uL (0.67-4.30); MEAN CORPUSCULAR HEMOGLOB 30.3 pg (26.0-34.0); MEAN CORPUSCULAR VOLUME 97.8 fL (80-100); MEAN PLATELET VOLUME 9.4 fL (9.2-13.0); MONOCYTES 15.7 %; MONOCYTES ABSOLUTE 1.13 10/3/uL (0.21-1.20); NEUTROPHILS 56.7 %; NEUTROPHILS ABSOLUTE 4.07 10/3/uL (2.02-8.40); PLATELET COUNT 234 10/3/uL (150-400); RBC DISTRIBUTION WIDTH 16.4 % (12.0-16.0); RED CELL COUNT 2.74 10/6/uL (4.0-5.6); WHITE BLOOD CELLS 7.2 10/3/uL (4.5-10.5)
[2017-01-19 11:29] LABS: MANUAL DIFF NO %
[2017-01-19 11:41] LABS: BUN (BLOOD UREA NITROGEN) 21 MG/DL (6-23); CALCIUM, SERUM 8.3 MG/DL (8.5-10.4); CHLORIDE, SERUM 107 MMOL/L (96-112); CO2 (CARBON DIOXIDE) 26 MMOL/L (24-34); CREATININE 3.73 MG/DL (0.55-1.02); GFR AFRICAN AMERICAN 14 ML/MIN (>=60); GFR NON AFRICAN AMERICAN 12 ML/MIN (>=60); GLUCOSE, SERUM 129 MG/DL (60-99); POTASSIUM, SERUM 4.4 MMOL/L (3.5-5.3); SODIUM, SERUM 141 MMOL/L (135-148)
[2017-01-20 03:54] LABS: BASOPHILS 0.2 %; BASOPHILS ABSOLUTE 0.02 10/3/uL (0.0-0.16); EOSINOPHILS 4.1 %; EOSINOPHILS ABSOLUTE 0.41 10/3/uL (0.0-0.53); HEMOGLOBIN 8.3 g/dL (12.0-16.0); IMMATURE GRANULOCYTES 0.3 %; IMMATURE GRANULOCYTES ABSOLUTE 0.03 10/3/uL (0.0-0.11); LYMPHOCYTES 15.2 %; LYMPHOCYTES ABSOLUTE 1.51 10/3/uL (0.67-4.30); MEAN CORPUS HGB CONC 31.9 g/dL (32.0-36.0); MEAN CORPUSCULAR HEMOGLOB 31.2 pg (26.0-34.0); MEAN CORPUSCULAR VOLUME 97.7 fL (80-100); MEAN PLATELET VOLUME 9.6 fL (9.2-13.0); MONOCYTES 11.5 %; MONOCYTES ABSOLUTE 1.14 10/3/uL (0.21-1.20); NEUTROPHILS 68.7 %; NEUTROPHILS ABSOLUTE 6.81 10/3/uL (2.02-8.40); PLATELET COUNT 232 10/3/uL (150-400); RBC DISTRIBUTION WIDTH 16.2 % (12.0-16.0); RED CELL COUNT 2.66 10/6/uL (4.0-5.6); WHITE BLOOD CELLS 9.9 10/3/uL (4.5-10.5)
[2017-01-20 03:55] LABS: MANUAL DIFF NO %
[2017-01-20 04:06] LABS: CALCIUM, SERUM 8.3 MG/DL (8.5-10.4); CHLORIDE, SERUM 104 MMOL/L (96-112); CO2 (CARBON DIOXIDE) 24 MMOL/L (24-34); GFR AFRICAN AMERICAN 11 ML/MIN (>=60); GFR NON AFRICAN AMERICAN 10 ML/MIN (>=60); GLUCOSE, SERUM 119 MG/DL (60-99); POTASSIUM, SERUM 5.2 MMOL/L (3.5-5.3); SODIUM, SERUM 140 MMOL/L (135-148)
[2017-01-20 04:07] LABS: BUN (BLOOD UREA NITROGEN) 26 MG/DL (6-23); CREATININE 4.64 MG/DL (0.55-1.02)
[2017-01-21 05:45] LABS: BASOPHILS 0.2 %; BASOPHILS ABSOLUTE 0.02 10/3/uL (0.0-0.16); EOSINOPHILS 2.9 %; EOSINOPHILS ABSOLUTE 0.31 10/3/uL (0.0-0.53); HEMOGLOBIN 7.1 g/dL (12.0-16.0); IMMATURE GRANULOCYTES 0.3 %; IMMATURE GRANULOCYTES ABSOLUTE 0.03 10/3/uL (0.0-0.11); LYMPHOCYTES 20.3 %; LYMPHOCYTES ABSOLUTE 2.16 10/3/uL (0.67-4.30); MEAN CORPUS HGB CONC 31.6 g/dL (32.0-36.0); MEAN CORPUSCULAR HEMOGLOB 30.9 pg (26.0-34.0); MEAN CORPUSCULAR VOLUME 97.8 fL (80-100); MEAN PLATELET VOLUME 9.9 fL (9.2-13.0); MONOCYTES 13.3 %; MONOCYTES ABSOLUTE 1.41 10/3/uL (0.21-1.20); PLATELET COUNT 193 10/3/uL (150-400); RBC DISTRIBUTION WIDTH 16.7 % (12.0-16.0); WHITE BLOOD CELLS 10.6 10/3/uL (4.5-10.5)
[2017-01-21 05:49] LABS: HEMATOCRIT 22.5 % (36.0-48.0); MANUAL DIFF NO %
[2017-01-21 06:01] LABS: ALBUMIN 2.1 G/DL (3.5-5.0); BUN (BLOOD UREA NITROGEN) 17 MG/DL (6-23); CALCIUM, SERUM 8.5 MG/DL (8.5-10.4); CHLORIDE, SERUM 107 MMOL/L (96-112); CO2 (CARBON DIOXIDE) 26 MMOL/L (24-34); CREATININE 3.65 MG/DL (0.55-1.02); GFR AFRICAN AMERICAN 15 ML/MIN (>=60); GFR NON AFRICAN AMERICAN 13 ML/MIN (>=60); GLUCOSE, SERUM 112 MG/DL (60-99); PHOSPHORUS, SERUM 2.9 MG/DL (2.5-4.5); POTASSIUM, SERUM 4.4 MMOL/L (3.5-5.3); SODIUM, SERUM 143 MMOL/L (135-148)
[2017-01-22 07:21] LABS: BASOPHILS 0.2 %; BASOPHILS ABSOLUTE 0.02 10/3/uL (0.0-0.16); EOSINOPHILS 3.5 %; EOSINOPHILS ABSOLUTE 0.36 10/3/uL (0.0-0.53); HEMATOCRIT 24.6 % (36.0-48.0); HEMOGLOBIN 7.8 g/dL (12.0-16.0); IMMATURE GRANULOCYTES 0.2 %; IMMATURE GRANULOCYTES ABSOLUTE 0.02 10/3/uL (0.0-0.11); LYMPHOCYTES 23.2 %; MANUAL DIFF NO %; MEAN CORPUS HGB CONC 31.7 g/dL (32.0-36.0); MEAN CORPUSCULAR HEMOGLOB 31.2 pg (26.0-34.0); MEAN CORPUSCULAR VOLUME 98.4 fL (80-100); MEAN PLATELET VOLUME 9.9 fL (9.2-13.0); MONOCYTES 11.7 %; MONOCYTES ABSOLUTE 1.21 10/3/uL (0.21-1.20); NEUTROPHILS 61.2 %; NEUTROPHILS ABSOLUTE 6.34 10/3/uL (2.02-8.40); PLATELET COUNT 252 10/3/uL (150-400); RBC DISTRIBUTION WIDTH 16.8 % (12.0-16.0); WHITE BLOOD CELLS 10.4 10/3/uL (4.5-10.5)
[2017-01-22 07:36] LABS: ALBUMIN 2.2 G/DL (3.5-5.0); CALCIUM, SERUM 8.8 MG/DL (8.5-10.4); CHLORIDE, SERUM 102 MMOL/L (96-112); CO2 (CARBON DIOXIDE) 24 MMOL/L (24-34); GLUCOSE, SERUM 95 MG/DL (60-99); POTASSIUM, SERUM 4.5 MMOL/L (3.5-5.3); SODIUM, SERUM 141 MMOL/L (135-148)
[2017-01-22 07:37] LABS: BUN (BLOOD UREA NITROGEN) 28 MG/DL (6-23); CREATININE 5.11 MG/DL (0.55-1.02); GFR AFRICAN AMERICAN 10 ML/MIN (>=60); GFR NON AFRICAN AMERICAN 8 ML/MIN (>=60); PHOSPHORUS, SERUM 4.6 MG/DL (2.5-4.5)
[2017-01-23 06:36] LABS: HEMOGLOBIN 7.4 g/dL (12.0-16.0); MEAN CORPUS HGB CONC 32.2 g/dL (32.0-36.0); MEAN CORPUSCULAR VOLUME 96.2 fL (80-100); MEAN PLATELET VOLUME 9.7 fL (9.2-13.0); PLATELET COUNT 238 10/3/uL (150-400); RBC DISTRIBUTION WIDTH 16.8 % (12.0-16.0); RED CELL COUNT 2.39 10/6/uL (4.0-5.6); WHITE BLOOD CELLS 7.3 10/3/uL (4.5-10.5)
[2017-01-23 06:38] LABS: MANUAL DIFF YES %
[2017-01-23 06:48] LABS: ALBUMIN 2.2 G/DL (3.5-5.0); CALCIUM, SERUM 8.4 MG/DL (8.5-10.4); CHLORIDE, SERUM 104 MMOL/L (96-112); CO2 (CARBON DIOXIDE) 27 MMOL/L (24-34); GLUCOSE, SERUM 95 MG/DL (60-99); POTASSIUM, SERUM 4.3 MMOL/L (3.5-5.3); SODIUM, SERUM 141 MMOL/L (135-148)
[2017-01-23 06:49] LABS: BUN (BLOOD UREA NITROGEN) 16 MG/DL (6-23); CREATININE 3.39 MG/DL (0.55-1.02); GFR AFRICAN AMERICAN 16 ML/MIN (>=60); GFR NON AFRICAN AMERICAN 14 ML/MIN (>=60); PHOSPHORUS, SERUM 2.7 MG/DL (2.5-4.5)
[2017-01-23 06:58] LABS: BAND NEUTROPHILS 5 %; BASOPHILS 1 %; BASOPHILS ABSOLUTE (CALC) 0.07 10/3/uL (0.0-0.16); EOSINOPHILS 4 %; EOSINOPHILS ABSOLUTE (CALC) 0.29 10/3/uL (0.0-0.53); LYMPHOCYTES 18 %; LYMPHOCYTES ABSOLUTE (CALC) 1.31 10/3/uL (0.67-4.30); MONOCYTES 4 %; MONOCYTES ABSOLUTE (CALC) 0.29 10/3/uL (0.21-1.20); NEUTROPHILS ABSOLUTE (CALC) 5.33 10/3/uL (2.02-8.40); PLATELET ESTIMATE ADQ (ADEQUATE); SEGMENTED NEUTROPHIL (0) 68 %; TOTAL NUCLEATED CELLS 100
[2017-01-23 06:59] LABS: OVALOCYTES 1+ (3-10/OIF) (0-2/OIF); POIKILOCYTOSIS 1+ (5-10/OIF) (0-5/OIF); POLYCHROMASIA 1+ (2-5/OIF) (0-1/OIF); TOXIC GRANULATION 1+
[2017-01-24 12:14] LABS: BASOPHILS 0.6 %; BASOPHILS ABSOLUTE 0.02 10/3/uL (0.0-0.16); EOSINOPHILS 2.8 %; EOSINOPHILS ABSOLUTE 0.09 10/3/uL (0.0-0.53); HEMATOCRIT 23.4 % (36.0-48.0); HEMOGLOBIN 7.3 g/dL (12.0-16.0); IMMATURE GRANULOCYTES 0.6 %; IMMATURE GRANULOCYTES ABSOLUTE 0.02 10/3/uL (0.0-0.11); LYMPHOCYTES 36.9 %; LYMPHOCYTES ABSOLUTE 1.17 10/3/uL (0.67-4.30); MEAN CORPUS HGB CONC 31.2 g/dL (32.0-36.0); MEAN CORPUSCULAR HEMOGLOB 30.8 pg (26.0-34.0); MEAN CORPUSCULAR VOLUME 98.7 fL (80-100); MEAN PLATELET VOLUME 9.8 fL (9.2-13.0); MONOCYTES 6.3 %; NEUTROPHILS 52.8 %; NEUTROPHILS ABSOLUTE 1.67 10/3/uL (2.02-8.40); PLATELET COUNT 204 10/3/uL (150-400); RBC DISTRIBUTION WIDTH 17.2 % (12.0-16.0); RED CELL COUNT 2.37 10/6/uL (4.0-5.6)
[2017-01-24 12:16] LABS: MANUAL DIFF NO %; WHITE BLOOD CELLS 3.2 10/3/uL (4.5-10.5)
[2017-01-24 12:29] LABS: ALBUMIN 2.3 G/DL (3.5-5.0); BUN (BLOOD UREA NITROGEN) 19 MG/DL (6-23); CALCIUM, SERUM 8.5 MG/DL (8.5-10.4); CHLORIDE, SERUM 103 MMOL/L (96-112); CO2 (CARBON DIOXIDE) 27 MMOL/L (24-34); CREATININE 3.71 MG/DL (0.55-1.02); GFR AFRICAN AMERICAN 14 ML/MIN (>=60); GFR NON AFRICAN AMERICAN 12 ML/MIN (>=60); GLUCOSE, SERUM 144 MG/DL (60-99); PHOSPHORUS, SERUM 2.5 MG/DL (2.5-4.5); POTASSIUM, SERUM 3.8 MMOL/L (3.5-5.3); SODIUM, SERUM 142 MMOL/L (135-148)
[2017-02-26] MEDS ORDERED: PROTONIX PO (17:34)
[2017-02-26] MEDS ORDERED: LEVEMFLXPN SC (17:36)
[2017-02-26] MEDS ORDERED: NOVOPEN SQ (17:37)
[2017-02-26] MEDS ORDERED: PERCOCET1 TAB PO (17:39)
== END 2017-01-25 16:29 | DRG 856 ==
LOC: ER 18:19 → 5NO 19:17 → CVICU 01-15 20:01 → 5NO 01-20 12:09
PROVIDERS: Anesthesiology; Hospitalist; Internal Medicine Nephrology; Thoracic Surgery (Cardiothoracic Vascular Surgery)
PROC: 0PB00ZZ Excision of Sternum, Open Approach (ICD-10-PCS; principal; 2017-01-15 13:15)
PROC: 5A1D60Z (ICD-10-PCS; 2017-01-16)
PROC: 0KXJ0ZZ Transfer Left Thorax Muscle, Open Approach (ICD-10-PCS; 2017-01-19)
PROC: 0KXH0ZZ Transfer Right Thorax Muscle, Open Approach (ICD-10-PCS; 2017-01-19)
DX: T81.4XXA Infection following a procedure, initial encounter (principal); N18.6 End stage renal disease; I12.0 Hypertensive chronic kidney disease with stage 5 chronic kidney disease or end stage renal disease; T82.898A Other specified complication of vascular prosthetic devices, implants and grafts, initial encounter; M86.9 Osteomyelitis, unspecified; M87.9 Osteonecrosis, unspecified; E13.69 Other specified diabetes mellitus with other specified complication; E11.22 Type 2 diabetes mellitus with diabetic chronic kidney disease; Y83.8 Other surgical procedures as the cause of abnormal reaction of the patient, or of later complication, without mention of misadventure at the time of the procedure; F17.210 Nicotine dependence, cigarettes, uncomplicated; I25.10 Atherosclerotic heart disease of native coronary artery without angina pectoris; E78.5 Hyperlipidemia, unspecified; J44.9 Chronic obstructive pulmonary disease, unspecified; H40.9 Unspecified glaucoma; B96.89 Other specified bacterial agents as the cause of diseases classified elsewhere; Z79.02 Long term (current) use of antithrombotics/antiplatelets; Z95.1 Presence of aortocoronary bypass graft; Z79.82 Long term (current) use of aspirin; Z79.4 Long term (current) use of insulin; Z90.710 Acquired absence of both cervix and uterus; Z98.890 Other specified postprocedural states; Z79.899 Other long term (current) drug therapy; Z83.3 Family history of diabetes mellitus; Z82.49 Family history of ischemic heart disease and other diseases of the circulatory system; Z88.5 Allergy status to narcotic agent; Z88.8 Allergy status to other drugs, medicaments and biological substances; Z72.89 Other problems related to lifestyle; Z99.2 Dependence on renal dialysis
CPT/HCPCS: 36415; 71010; 71020; 71250; 80048; 80069; 80076; 80202; 82962; 83735; 84484; 85014; 85018; 85025; 85610; 85730; 86850; 86900; 86901; 86920; 87015; 87040; 87070; 87075; 87077; 87102; 87116; 87186; 87205; 87641; 93005; 93971; 94640; 97110-GO; 97162-GP; 97167-GO; 97535-GO; 99285; A9270-GY; G0257; J0692; J0713; J0885; J1170; J2250; J2270; J2370; J2405; J2710; J3010; J3370; P9047

== ENCOUNTER 2017-02-28 06:33 | Inpatient (IN) | payer BC, MEDICARE ==
--- NOTE | ~2017-02-28 | OP ---
Record Of Operation [facility] [address] [place]. [address] NAME: SHEBA PARKS : 55 STATUS : ADM IN [facility]#: [id number] AGE: 61 ADM/REG DATE : 02/28/17 MR#: [id number] REPORT SERV DATE: 03/20/17 DICTATED BY: ECTOR STEWART DATE: 03/20/17 REPORT STATUS : Draft TRANSCRIBED BY: MODL DATE: 03/20/17 DATE OF PROCEDURE: 03/19/2017 PREOPERATIVE DIAGNOSIS: Sternal wound with dehiscence. POSTOPERATIVE DIAGNOSIS: Sternal wound with dehiscence. PROCEDURES: 1. Excisional debridement of skin, subcutaneous tissue, and muscle fascia to the sternum. 2. Placement of negative pressure wound dressing to the sternum. RESIDENT: Albin Martin MD ANESTHESIA: General endotracheal. COMPLICATIONS: None. INDICATION FOR THE PROCEDURE: The patient is a 61-year-old female who had coronary artery bypass grafting with left internal mammary. She developed a sternal wound infection requiring debridement and pectoralis flaps, this was performed by Dr. Flores. She subsequently developed further wound dehiscence, which was debrided and closed by Dr. Flores. She now has a second wound dehiscence and is appropriate for debridement of the wound, evaluation under anesthesia, and wound VAC placement. The patient was marked in the preoperative area. Consent was obtained. She was identified. The risks of the procedure including but not limited to, infection, bleeding, scarring, and injury to mediastinal vas structures was discussed. All of her questions were answered. She agreed to proceed. DESCRIPTION OF PROCEDURE: She was taken to the operating room, underwent general anesthesia. Her chest was prepped and draped in the usual sterile fashion. Previously placed retention sutures in the lower sternal upper abdominal area were removed. The wound then immediately opened as there was no healing evident at all. The wound cultures were obtained from the wound. Nonviable skin edges, subcutaneous tissue, and some muscle fascia overlying the rectus muscle were debrided sharply using a scalpel. The wound was also treated with a curette to remove nonviable tissue, and fibrinous material was then irrigated copiously with diluted Hibiclens solution. Electrocautery was used for hemostasis. At this point, the evaluation reveals a 17 x 12 cm wound extending to the muscular fascia and mediastinum. There is no nonviable bony structure evident within the wound. A VAC sponge was cut to the appropriate size for the defect placed into the wound, covered with an occlusive dressing, was placed to suction, has a good seal, and no leak. The patient tolerated the procedure well. She is extubated, transferred to the recovery area. She will retire to the hospital bed, will require local wound care with wound VAC therapy until the wound is clean and granulating and appropriate then for skin grafting or omental flap. Record Of Operation [address] [place]. [address] NAME: SHEBA PARKS : 55 STATUS : ADM IN [facility]#: [id number] AGE: 61 ADM/REG DATE : 02/28/17 MR#: [id number] REPORT SERV DATE: 03/20/17 DICTATED BY: ECTOR STEWART DATE: 03/20/17 REPORT STATUS : Draft TRANSCRIBED BY: ROLA DATE: 03/20/17 TALA/ROLA Ector Stewart M.D. / [id number] CC: Carissa Gates M.D.
--- NOTE | ~2017-02-28 | HP ---
History And Physical [place] [address] [place]. [address] NAME: SHEBA PARKS : 55 STATUS : ADM IN [facility]#: [id number] AGE: 61 ADM/REG DATE : 02/28/17 MR#: [id number] REPORT SERV DATE: 02/28/17 DICTATED BY: MAREK CAMARGO DATE: 02/28/17 REPORT STATUS : Draft TRANSCRIBED BY: MODRonnie DATE: 02/28/17 DATE OF ADMISSION: 02/28/2017 PERTINENT HISTORY: The patient is a 61-year-old female, who is status post coronary artery bypass grafting procedure performed in 11/2016, who had undergone on debridement of poor wound healing tissue in the lower sternotomy area on 01/15/2017. At that time, the poor wound healing required soft tissue debridement as well as some bony debridement, and the patient had been home and with some difficulty keeping the area clean and now has some eschar in the inferior aspect of the lower part of the sternotomy wound. The eschar is very sensitive and for that reason, the patient requires open surgical debridement of that eschar. Due to the recurrent nature of this, it is felt that it would be better to treat with primary debridement and then Vac-Pac dressing to allow two days for the wound to better vascularize and then bring that patient back at that time for delayed primary closure. The patient has not had any fevers or chills. No sign of infection. She is a known diabetic with severe peripheral vascular disease. She has very poor perfusion of her tissues. PAST MEDICAL HISTORY: Significant for coronary artery bypass grafting performed on 11/24/2016. She also has a medical history of hypertension, coronary artery disease, hyperlipidemia, diabetes mellitus, renal insufficiency, and COPD. SOCIAL HISTORY: Positive for tobacco and ethanol use. FAMILY HISTORY: Positive for coronary artery disease. REVIEW OF SYSTEMS: Significant only for that listed in history of present illness. PHYSICAL EXAMINATION: VITAL SIGNS: Show the patient to be afebrile. Her blood pressure is 120/70, heart rate is 70 and regular. CONSTITUTIONAL: She is well developed, well nourished, somewhat frail. PSYCHIATRIC: Normal. NEUROLOGIC: Intact. VASCULAR: Shows no bruits in the neck. Diminished pulses in all extremities. Chronic peripheral vascular disease. CARDIAC: Regular rate and rhythm. No murmur noted. PULMONARY: Shows equal breath sounds bilaterally. No wheezes, rales, or rhonchi. MUSCULOSKELETAL: Shows a well-healed superior aspect of her sternotomy wound. Lower aspect has eschar, which is thickened at the level of the epigastrium. EXTREMITIES: All within normal limits. SKIN: Shows no rash. No edema. : Normal female external genitalia. GI: Her abdomen is soft and nontender, without masses. IMPRESSION: At this time is poor wound healing of previous sternotomy wound from coronary artery bypass grafting and with very poor diabetic and renal insufficiency, necessitating History And Physical [address] [address] NAME: SHEBA PARKS : 55 STATUS : ADM IN [facility]#: [id number] AGE: 61 ADM/REG DATE : 02/28/17 MR#: [id number] REPORT SERV DATE: 02/28/17 DICTATED BY: MAREK CAMARGO DATE: 02/28/17 REPORT STATUS : Draft TRANSCRIBED BY: ROLA DATE: 02/28/17 debridement of the wound and initial delayed primary closure. ESAU/ROLA Marek Camargo M.D. / [id number] CC: Carissa Gates M.D.
--- NOTE | ~2017-02-28 | CN ---
Consultation Report [place] [address] [facility] [place]. [address] NAME: SHEBA PARKS : 55 STATUS : ADM IN [facility]#: [id number] AGE: 61 ADM/REG DATE : 02/28/17 MR#: [id number] REPORT SERV DATE: 03/01/17 DICTATED BY: SUSHANT REYNOSO DATE: 03/01/17 REPORT STATUS : Draft TRANSCRIBED BY: MODL DATE: 03/01/17 NEPHROLOGY CONSULTATION DATE OF CONSULTATION: 03/01/2017 ESRD, hemodialysis. HISTORY OF PRESENT ILLNESS: The patient is a 61-year-old white female with significant past medical history of end-stage renal disease, diabetes, sternal wound, status post CABG. 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 She currently has a wound VAC. She re-presented for possible removal of the sternal wound and closing. Infectious Disease consult is pending. The patient's white blood cell count is 8, hemoglobin is 8.7, and platelets are 260. The patient also has a history insulin-dependent diabetes and hypertension. PAST MEDICAL HISTORY/PAST SURGICAL HISTORY: 1. 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 2. Insulin-dependent diabetes. 3. Hypertension. 4. History of glaucoma. 5. Anemia of chronic kidney disease. Past medical history/past surgical history as mentioned in the HPI. SOCIAL HISTORY: Noncontributory. FAMILY MEDICAL HISTORY: Noncontributory. REVIEW OF SYSTEMS: Negative, otherwise stated in the HPI. ALLERGIES: INCLUDE FENTANYL AND MIDAZOLAM. HOSPITAL MEDICATIONS: Reviewed. Please see MAR. PHYSICAL EXAMINATION: VITAL SIGNS: Temperature is 97.3, pulse is 81, and blood pressure is 173/79. GENERAL: She is no apparent distress. She answers questions appropriately. SKIN: No petechiae or purpura. CARDIOVASCULAR: Regular rate and rhythm. CHEST: Sternal wound with wound VAC intact. RESPIRATORY: Decreased breath sounds at bases without increased respiratory rate. ABDOMEN: Soft, nontender, nondistended. EXTREMITIES: No peripheral edema. Left IJ PermCath and left AV fistula. LABORATORY DATA: Sodium is 142, potassium is 4.3, chloride is 101, CO2 is 32, BUN is 18, and Consultation Report [place] [address] [facility] [place]. [address] NAME: SHEBA PARKS : 55 STATUS : ADM IN [facility]#: [id number] AGE: 61 ADM/REG DATE : 02/28/17 MR#: [id number] REPORT SERV DATE: 03/01/17 DICTATED BY: SUSHANT REYNOSO. DATE: 03/01/17 REPORT STATUS : Draft TRANSCRIBED BY: MODL DATE: 03/01/17 creatinine is 4.14. White blood cell count is 8, and her hemoglobin is 8.7, and platelets are 260. ASSESSMENT: 1. Sternal wound, status post CABG. 2. Insulin-dependent diabetes. 3. Hypertension. 4. History of glaucoma. 5. Anemia of chronic disease. PLAN: Hemodialysis in the a.m. on Sunday, , and Sunday. Antibiotics per ID and p.r.n. medications. SGG/RAYSAL Sushant Reynoso M.D. / [id number] CC: Carissa Gates M.D.
--- NOTE | ~2017-02-28 | OP ---
Record Of Operation [facility] [address] [place]. [address] NAME: SHEBA PARKS : 55 STATUS : ADM IN [facility]#: [id number] AGE: 61 ADM/REG DATE : 02/28/17 MR#: [id number] REPORT SERV DATE: 02/28/17 DICTATED BY: MAREK FLORES DATE: 02/28/17 REPORT STATUS : Draft TRANSCRIBED BY: MODL DATE: 02/28/17 DATE OF PROCEDURE: 02/28/2017 PREOPERATIVE DIAGNOSIS: Poor wound healing of sternotomy wound, status post sternotomy. POSTOPERATIVE DIAGNOSIS: Poor wound healing of sternotomy wound, status post sternotomy. OPERATIVE PROCEDURE: Debridement of sternotomy wound with pulse lavage irrigation and Vac- Pac dressing closure. OPERATIVE SURGEON: Marek Flores M.D. ANESTHESIA: General endotracheal anesthesia, AA. DRAINS: No drains were placed. OPERATIVE PROCEDURE: The patient was taken to the operating room and placed in supine position. Anesthesia was obtained. The patient was prepped and draped in usual fashion. The inferior aspect of the sternotomy wound was debrided sharply with removal of all devitalized tissue. This included skin and subcutaneous tissues. Deep fascia was intact and cultures were obtained, but there was no obvious purulent material. All devitalized tissue was removed. Pulse lavage saline was then completed with a 3 L of normal saline. Hemostasis obtained with electrocautery. A medium-sized Vac-Pac dressing was then placed in usual fashion and placed to continuous negative suction. The patient tolerated the procedure well and was taken back to the recovery room in stable condition. ESAU/ROLA Marek Flores M.D. / [id number] CC: Carissa Gates M.D.
--- NOTE | ~2017-02-28 | DS ---
Discharge Summary [facility] [address] [facility] [place]. [address] NAME: SHEBA PARKS : 55 STATUS : DIS IN PAT#: [id number] AGE: 61 ADM/REG DATE : 02/28/17 MR#: [id number] REPORT SERV DATE: 06/01/17 DICTATED BY: MAREK FLORES DATE: 05/31/17 REPORT STATUS : Draft TRANSCRIBED BY: ROLA DATE: 05/31/17 ADMISSION DATE: 02/28/2017 DISCHARGE DATE: 03/29/2017 PERTINENT HISTORY AND HOSPITAL COURSE: The patient is an elderly female who underwent coronary artery bypass grafting on 11/24/2016. The patient had multiple comorbidities including hypertension, coronary artery disease, hyperlipidemia, diabetes mellitus, renal insufficiency, COPD, glaucoma, and hemodialysis. She had poor wound healing and was brought back into the hospital for debridement of the wound. She underwent open debridement on 02/28/2017, at which time, she was debrided down to the deep fascia and had a Vac-Pac dressing placed. She was treated with antibiotics and followed closely by Infectious Disease. She was taken back to the operating room on 03/02/2017, at which time, she went further debridement and replaced the Vac-Pac dressing. She continues to receive nutritional support and had close control of diabetes mellitus. She was taken back to the operating room and then on 03/07/2017 where she had continued debridement and then had musculocutaneous flaps closure of the wound. She tolerated that well, but she did have persistent slow healing of the inferior aspect of that wound. For that reason, she was consulted to be seen by Plastic Surgery. Plastic Surgery did see her in the hospital, changed the Vac-Pac dressing at bedside and arranged for discharge with the goal of following her closely as an outpatient. She was then discharged on that date to be followed closely by Dr. Jeison Stewart in his office and he will close her at the appropriate time, also to be seen by us and her senior pharmacy technician. DISCHARGE DIAGNOSIS: Status post coronary artery bypass grafting with poor wound healing due to multiple comorbidities. OPERATIVE PROCEDURE PERFORMED: Two debridements of the wound with Vac-Pac dressing and then finally a flap closure. Discharge instructions will be to follow up with Dr. Jeison Stewart in his office as well as us and her senior pharmacy technician. ESAU/ROLA Marek Flores M.D. / [id number] CC: Carissa Gates M.D.
--- NOTE | ~2017-02-28 | CN ---
Consultation Report [facility] [address]. [address] NAME: SHEBA PARKS : 55 STATUS : ADM IN PAT#: [id number] AGE: 61 ADM/REG DATE : 02/28/17 MR#: [id number] REPORT SERV DATE: 03/24/17 DICTATED BY: BELL ESTRADA DATE: 03/24/17 REPORT STATUS : Draft TRANSCRIBED BY: MODL DATE: 03/24/17 HOSPITALIST CONSULTATION DATE OF CONSULTATION: 03/23/2017 REASON FOR CONSULTATION: Diabetes management per Dr. Flores. HISTORY OF PRESENT ILLNESS: This is an awake, alert, and oriented, very pleasant 61-year-old female who was admitted on 02/28/[address] Flores for sternal wound dehiscence with osteomyelitis. She has had a complicated complex course of treatment since having CABG in 01/2017. Her blood sugar was 574 this evening and we have been asked to manage her blood sugars while she remains in hospital for this stay. The patient reports a 30-year history of diabetes with 10 years on insulin to control her blood sugars. The patient and nurse both report increased p.o. intake today including foods heavy in carbohydrates in addition to protein shakes and her hospital meals. She has had poor wound healing since her last admit and has been encouraged to the eat to promote healing. Her blood sugar ranges since admission have been 74-157 except for today. The patient is currently on dialysis every Sunday, Sunday, Sunday for end-stage renal disease. At this time, she denies all symptoms and expresses a strong desire to continue with a regular diet and agrees to avoid all off menu foods not provided by the hospital at this time. She denies chest pain, palpitations, dyspnea, headaches, dizziness, nausea, vomiting, or diarrhea. PAST MEDICAL HISTORY: Significant for: 1. Type 2 diabetes mellitus, insulin dependent. 2. ESRD. 3. Hypertension. 4. Hyperlipidemia. 5. Glaucoma. 6. Sleep apnea. 7. GERD. 8. Anemia of chronic disease. 9. Diabetic neuropathy. PAST SURGICAL HISTORY: Includes bilateral cataract surgery, 2011; hysterectomy, 2000; left knee surgery, 2000; wisdom teeth, 1977; tonsillectomy, 1960; CABG x3, 11/2016; sternal wound debridement most recent, 03/19/2017. The patient's PCP is Dr. Flex Saul. She follows with Dr. Xiong as her electro tech; Dr. Flores as her Vascular Surgeon; Dr. Benitez, Pulmonology; and Dr. Campbell, Nephrology. SOCIAL HISTORY: The patient is a never smoker, denying tobacco use. The patient also denies alcohol and illicit drug use. Consultation Report [address] [place]. [address] NAME: SHEBA PARKS : 55 STATUS : ADM IN [facility]#: [id number] AGE: 61 ADM/REG DATE : 02/28/17 MR#: [id number] REPORT SERV DATE: 03/24/17 DICTATED BY: BELL ESTRADA DATE: 03/24/17 REPORT STATUS : Draft TRANSCRIBED BY: ROLA DATE: 03/24/17 FAMILY HISTORY: Mother in 2013 with complications related to CHF. Father remains alive at age 84 and has diabetes as well as hypertension and high cholesterol. ALLERGIES: TO NARCOTICS AND BENZODIAZEPINES. HOME MEDICATIONS: 1. Aspirin 81 mg p.o. daily. 2. Lipitor 20 mg p.o. daily. 3. Brimonidine ophthalmic solution 0.15% one drop left eye twice daily. 4. Cosopt ophthalmic solution one drop both eyes twice daily. 5. NovoLog FlexPen per sliding scale if blood sugar greater than 150 with meals. 6. Levemir 5 units subcutaneous at bedtime if blood sugar greater than 150. 7. Zofran 4 mg p.o. every four hours p.r.n. nausea and vomiting. 8. Percocet 2.5/325 one tablet p.o. every four hours p.r.n. 9. Protonix 40 mg p.o. q.a.m. REVIEW OF SYSTEMS: A complete 10-point review of systems is negative except as per HPI. PHYSICAL EXAMINATION: VITAL SIGNS: T 96.4, P 92, RR 16, BP 130/60, SpO2 99% on room air. GENERAL: Well-appearing female, in no acute distress. NEUROLOGIC: Awake, alert, and oriented x3 without focal deficit. HEENT: Normocephalic, atraumatic without lymphadenopathy. NECK: Supple. No JVD. LUNGS: CTA in all lung erwin with normal respiratory effort. Lung sounds diminished in bilateral bases. CV: Regular rate and rhythm. S1, S2 auscultated. ABDOMEN: Soft, round, nontender. Bowel sounds active in all quadrants. No masses. EXTREMITIES: No cyanosis. Cap refill within normal limits. Generalized edema noted to bilateral lower extremities. PSYCHIATRIC: Normal affect. SKIN: Clean, dry, and intact with mucous membranes pink and moist. Sternal wound with well approximated edges and VAC-PAC in place. Sacral ulcer noted. PERTINENT LABORATORY DATA: Last hemoglobin A1c 11/2016 was 6.9. Blood glucose ranges since this admit 74 to 157. The patient reports blood sugar ranges 100 to 120s at home as well. BUN and creatinine 45 and 4.21 in the patient with known ESRD. Potassium 4.4. ASSESSMENT AND PLAN: 1. Type 2 diabetes mellitus, insulin dependent. This is chronic with her last A1c of 6.9 in November. The patient reports 30-year history of diabetes and has been on insulin and stable for 10 years. We will continue a regular diet, increase her sliding scale insulin to level 3. We will give Levemir 10 units tonight and proceed with Accu-Cheks every two hours to maintain close watch of her blood sugars with shift. The patient Consultation Report [address] [place] [place]. [address] NAME: SHEBA PARKS : 55 STATUS : ADM IN [facility]#: [id number] AGE: 61 ADM/REG DATE : 02/28/17 MR#: [id number] REPORT SERV DATE: 03/24/17 DICTATED BY: BELL ESTRADA DATE: 03/24/17 REPORT STATUS : Draft TRANSCRIBED BY: MODRonnie DATE: 03/24/17 agrees to abstain from all off menu foods that are not provided by the hospital. We will adjust medications and diet as indicated. 2. End-stage renal disease. This is chronic and the patient is on dialysis Sunday, Sunday, Sunday and is managed by Dr. Campbell in Nephrology. We will defer the management of this to the primary team and monitor as we continue her current treatment. Thank you for this consult. We are pleased to follow this patient with you. This consult was completed through thorough review of [employer], old records, [employer], and current chart as well as interview with the patient and her daughter. [facility]/ROLA Bell Estrada NP / [id number] CC: Carissa Gates M.D.
--- NOTE | ~2017-02-28 | OP ---
Record Of Operation [facility] [address] [place] [address] NAME: SHEBA PARKS : 55 STATUS : DIS IN PAT#: [id number] AGE: 61 ADM/REG DATE : 02/28/17 MR#: [id number] REPORT SERV DATE: 05/01/17 DICTATED BY: MAREK FLORES DATE: 04/30/17 REPORT STATUS : Draft TRANSCRIBED BY: MODL DATE: 04/30/17 DATE OF PROCEDURE: 03/07/2017 ADDENDUM: The addendum is for this is that the length of the sternal wound was 10 inches. Therefore, the sternal wound which had been debrided previously was now to be closed. A delayed primary closure was 10 inches in length. ESAU/ROLA Marek Flores M.D. / [id number] CC: Carissa Gates M.D.
--- NOTE | ~2017-02-28 | OP ---
Record Of Operation [facility] [address] [place]. [address] NAME: SHEBA PARKS : 55 STATUS : ADM IN [facility]#: [id number] AGE: 61 ADM/REG DATE : 02/28/17 MR#: [id number] REPORT SERV DATE: 03/07/17 DICTATED BY: KLARISSA WALLS DATE: 03/07/17 REPORT STATUS : Draft TRANSCRIBED BY: MODL DATE: 03/07/17 DATE OF PROCEDURE: 03/07/2017 INDICATIONS FOR PROCEDURE: Left IJ PermCath in place with a functioning left upper extremity arterial venous graft. PROCEDURE: Left IJ PermCath removal. DESCRIPTION OF PROCEDURE: After informed consent had been obtained, the patient was taken to the operating room in preparation for a sternal debridement and closure, and for PermCath removal. General anesthesia was induced. The left IJ PermCath was prepped and draped in the usual sterile fashion. A time-out was performed. The stitches were cut and the cuff was dissected free from the surrounding scar tissue through the already present incision in the left upper chest. The PermCath was removed and was discarded. Pressure was held over the left IJ entry site for approximately 2 minutes. No further bleeding was noted. A sterile dressing was placed. The patient tolerated the procedure well. ESTIMATED BLOOD LOSS: Minimal. COMPLICATIONS: None. IMPLANTS: None. DRAINS: None. DISPOSITION: Postanesthesia Care Unit - stable. DICTATED BY: MD WINTER Waite/ROLA Klarissa Walls MD / [id number] CC: Carissa Gates M.D.
--- NOTE | ~2017-02-28 | OP ---
Record Of Operation [facility] [address] [place]. [address] NAME: SHEBA PARKS : 55 STATUS : ADM IN PAT#: [id number] AGE: 61 ADM/REG DATE : 02/28/17 MR#: [id number] REPORT SERV DATE: 03/02/17 DICTATED BY: MAREK FLORES DATE: 03/02/17 REPORT STATUS : Draft TRANSCRIBED BY: MODL DATE: 03/02/17 DATE OF PROCEDURE: 03/02/2017 PREOPERATIVE DIAGNOSIS: Status post debridement sternotomy wound with Vac-Pac dressing in place. POSTOPERATIVE DIAGNOSIS: Status post debridement sternotomy wound with Vac-Pac dressing in place, in need of wound debridement with Vac-Pac dressing change. OPERATIVE PROCEDURE: Irrigation and exploration of inferior sternotomy wound with Vac-Pac dressing change. OPERATIVE SURGEON: Marek Flores M.D. ANESTHESIA: General endotracheal anesthesia, AA. OPERATIVE PROCEDURE: The patient was taken to the operating room, placed in supine position. Anesthesia was obtained. The patient's Vac-Pac dressing removed. The patient's chest was then prepped and draped in usual fashion. The inferior sternal wound was then examined and debrided of any devitalized tissue, it was irrigated with 3 L of pulse lavage saline. Hemostasis obtained with electrocautery. Vac-Pac dressing was then placed in usual fashion. The patient tolerated the procedure well, was taken back to the recovery room in stable condition. ESAU/ROLA Marek Flores M.D. / [id number] CC: Carissa Gates M.D.
--- NOTE | ~2017-02-28 | OP ---
Record Of Operation [facility] [address] [place]. [address] NAME: SHEBA PARKS : 55 STATUS : ADM IN PAT#: [id number] AGE: 61 ADM/REG DATE : 02/28/17 MR#: [id number] REPORT SERV DATE: 03/07/17 DICTATED BY: MAREK FLORES DATE: 03/07/17 REPORT STATUS : Draft TRANSCRIBED BY: MODL DATE: 03/07/17 DATE OF PROCEDURE: 03/07/2017 PREOPERATIVE DIAGNOSIS: Status post sternal debridement and now in need of delayed primary closure. POSTOPERATIVE DIAGNOSIS: Status post sternal debridement and now in need of delayed primary closure. PROCEDURE: Sternotomy wound debridement with delayed primary closure utilizing remobilization of pectoralis muscle flaps. SURGEON: Marek Flores M.D. ANESTHESIA: General endotracheal anesthesia, AA. DRAINS PLACED: 19-Melvin drain in the subpectoral space. OPERATIVE PROCEDURE: The patient was taken to the operating room and placed in supine position. Anesthesia was obtained. The patient was prepped and draped in the usual sterile fashion. The Vac-Pac dressing had been removed. The sternal wound was debrided of all devitalized tissue. The pectoralis muscle flaps were remobilized. Subcostal margin was debrided and removed. It had not been removed prior. Hemostasis obtained with electrocautery. The wound was irrigated with 3 L of pulse lavage saline. A 19-Melvin drain was placed in the subpectoral space. The musculocutaneous flaps then were closed with interrupted vertical mattress sutures of #1 Prolene. The skin edges were then approximated with interrupted 3-0 nylon vertical mattress sutures. Prevena dressing was placed. The Melvin drain was placed to bulb suction. The patient tolerated the procedure well and was taken back to recovery room in stable condition. ESAU/ROLA Marek Flores M.D. / [id number] CC: Carissa Gates M.D.
[~2017-02-28 06:33] MED LIST changes: +PERCOCET1 TAB PO
[2017-02-28 08:17] LABS: MEAN CORPUS HGB CONC 31.4 g/dL (32.0-36.0); MEAN CORPUSCULAR HEMOGLOB 32.4 pg (26.0-34.0); MEAN PLATELET VOLUME 9.6 fL (9.2-13.0); RBC DISTRIBUTION WIDTH 16.8 % (12.0-16.0)
[2017-02-28 08:21] LABS: HEMATOCRIT 31.5 % (36.0-48.0); HEMOGLOBIN 9.9 g/dL (12.0-16.0); MANUAL DIFF YES %; MEAN CORPUSCULAR VOLUME 102.9 fL (80-100); PLATELET COUNT 269 10/3/uL (150-400); RED CELL COUNT 3.06 10/6/uL (4.0-5.6); WHITE BLOOD CELLS 10.1 10/3/uL (4.5-10.5)
[2017-02-28 08:29] LABS: INTERNATIONAL NORMAL RATI 1.1 UNITS (-); PARTIAL THROMBO TIME 34.9 SEC (22.5-37.2); PROTIME (NOT ORD) 13.8 SEC (12.0-14.5)
[2017-02-28 08:30] LABS: CALCIUM, SERUM 8.7 MG/DL (8.5-10.4); CHLORIDE, SERUM 100 MMOL/L (96-112); CO2 (CARBON DIOXIDE) 29 MMOL/L (24-34); GFR AFRICAN AMERICAN 18 ML/MIN (>=60); GFR NON AFRICAN AMERICAN 15 ML/MIN (>=60); GLUCOSE, SERUM 119 MG/DL (60-99); POTASSIUM, SERUM 3.9 MMOL/L (3.5-5.3); SODIUM, SERUM 141 MMOL/L (135-148)
[2017-02-28 08:31] LABS: BUN (BLOOD UREA NITROGEN) 12 MG/DL (6-23); CREATININE 3.16 MG/DL (0.55-1.02)
[2017-02-28 08:41] LABS: BAND NEUTROPHILS 1 %; EOSINOPHILS 3 %; LYMPHOCYTES 14 %; LYMPHOCYTES ABSOLUTE (CALC) 1.41 10/3/uL (0.67-4.30); MONOCYTES 10 %; MONOCYTES ABSOLUTE (CALC) 1.01 10/3/uL (0.21-1.20); NEUTROPHILS ABSOLUTE (CALC) 7.37 10/3/uL (2.02-8.40); SEGMENTED NEUTROPHIL (0) 72 %; TOTAL NUCLEATED CELLS 100
[2017-02-28 08:42] LABS: MACROCYTES 1+ (5-10/OIF) (0-5/OIF); PLATELET ESTIMATE ADQ (ADEQUATE)
[2017-03-01 04:20] LABS: BASOPHILS 0.3 %; BASOPHILS ABSOLUTE 0.02 10/3/uL (0.0-0.16); EOSINOPHILS 2.3 %; EOSINOPHILS ABSOLUTE 0.18 10/3/uL (0.0-0.53); HEMOGLOBIN 8.7 g/dL (12.0-16.0); IMMATURE GRANULOCYTES 0.1 %; IMMATURE GRANULOCYTES ABSOLUTE 0.01 10/3/uL (0.0-0.11); LYMPHOCYTES 26.3 %; LYMPHOCYTES ABSOLUTE 2.09 10/3/uL (0.67-4.30); MEAN CORPUS HGB CONC 31.5 g/dL (32.0-36.0); MEAN CORPUSCULAR HEMOGLOB 32.1 pg (26.0-34.0); MEAN CORPUSCULAR VOLUME 101.8 fL (80-100); MEAN PLATELET VOLUME 9.4 fL (9.2-13.0); MONOCYTES 16.2 %; MONOCYTES ABSOLUTE 1.29 10/3/uL (0.21-1.20); NEUTROPHILS 54.8 %; NEUTROPHILS ABSOLUTE 4.36 10/3/uL (2.02-8.40); PLATELET COUNT 260 10/3/uL (150-400); RBC DISTRIBUTION WIDTH 16.6 % (12.0-16.0); RED CELL COUNT 2.71 10/6/uL (4.0-5.6)
[2017-03-01 04:22] LABS: HEMATOCRIT 27.6 % (36.0-48.0); MANUAL DIFF NO %
[2017-03-01 04:35] LABS: BUN (BLOOD UREA NITROGEN) 18 MG/DL (6-23); CALCIUM, SERUM 8.6 MG/DL (8.5-10.4); CHLORIDE, SERUM 101 MMOL/L (96-112); CO2 (CARBON DIOXIDE) 32 MMOL/L (24-34); CREATININE 4.14 MG/DL (0.55-1.02); GFR AFRICAN AMERICAN 13 ML/MIN (>=60); GFR NON AFRICAN AMERICAN 11 ML/MIN (>=60); GLUCOSE, SERUM 74 MG/DL (60-99); POTASSIUM, SERUM 4.3 MMOL/L (3.5-5.3); SODIUM, SERUM 142 MMOL/L (135-148)
[2017-03-02 05:09] LABS: CALCIUM, SERUM 8.7 MG/DL (8.5-10.4); CHLORIDE, SERUM 101 MMOL/L (96-112); CO2 (CARBON DIOXIDE) 30 MMOL/L (24-34); POTASSIUM, SERUM 4.1 MMOL/L (3.5-5.3); SODIUM, SERUM 141 MMOL/L (135-148)
[2017-03-02 05:10] LABS: BASOPHILS 0.4 %; BASOPHILS ABSOLUTE 0.03 10/3/uL (0.0-0.16); BUN (BLOOD UREA NITROGEN) 28 MG/DL (6-23); EOSINOPHILS 3.5 %; EOSINOPHILS ABSOLUTE 0.27 10/3/uL (0.0-0.53); GFR AFRICAN AMERICAN 10 ML/MIN (>=60); GFR NON AFRICAN AMERICAN 8 ML/MIN (>=60); GLUCOSE, SERUM 90 MG/DL (60-99); HEMOGLOBIN 9.8 g/dL (12.0-16.0); IMMATURE GRANULOCYTES 0.3 %; IMMATURE GRANULOCYTES ABSOLUTE 0.02 10/3/uL (0.0-0.11); LYMPHOCYTES 20.6 %; LYMPHOCYTES ABSOLUTE 1.58 10/3/uL (0.67-4.30); MEAN CORPUS HGB CONC 31.6 g/dL (32.0-36.0); MEAN CORPUSCULAR HEMOGLOB 32.1 pg (26.0-34.0); MEAN CORPUSCULAR VOLUME 101.6 fL (80-100); MONOCYTES 13.2 %; MONOCYTES ABSOLUTE 1.01 10/3/uL (0.21-1.20); NEUTROPHILS ABSOLUTE 4.75 10/3/uL (2.02-8.40); PLATELET COUNT 292 10/3/uL (150-400); RBC DISTRIBUTION WIDTH 16.3 % (12.0-16.0); RED CELL COUNT 3.05 10/6/uL (4.0-5.6); WHITE BLOOD CELLS 7.7 10/3/uL (4.5-10.5)
[2017-03-02 05:20] LABS: MANUAL DIFF NO %
[2017-03-02 10:49] LABS: ALBUMIN 2.3 G/DL (3.5-5.0)
[2017-03-03 05:49] LABS: INTERNATIONAL NORMAL RATI 1.1 UNITS (-); PROTIME (NOT ORD) 14.2 SEC (12.0-14.5)
[2017-03-03 05:50] LABS: HEMATOCRIT 31.4 % (36.0-48.0); HEMOGLOBIN 9.9 g/dL (12.0-16.0); MEAN CORPUS HGB CONC 31.5 g/dL (32.0-36.0); MEAN CORPUSCULAR HEMOGLOB 32.4 pg (26.0-34.0); MEAN CORPUSCULAR VOLUME 102.6 fL (80-100); MEAN PLATELET VOLUME 9.6 fL (9.2-13.0); PLATELET COUNT 223 10/3/uL (150-400); RBC DISTRIBUTION WIDTH 16.4 % (12.0-16.0); RED CELL COUNT 3.06 10/6/uL (4.0-5.6); WHITE BLOOD CELLS 6.6 10/3/uL (4.5-10.5)
[2017-03-03 05:55] LABS: MANUAL DIFF YES %
[2017-03-03 05:57] LABS: ALBUMIN 2.1 G/DL (3.5-5.0); BUN (BLOOD UREA NITROGEN) 18 MG/DL (6-23); CALCIUM, SERUM 8.4 MG/DL (8.5-10.4); CHLORIDE, SERUM 104 MMOL/L (96-112); CO2 (CARBON DIOXIDE) 28 MMOL/L (24-34); CREATININE 3.58 MG/DL (0.55-1.02); GFR AFRICAN AMERICAN 15 ML/MIN (>=60); GFR NON AFRICAN AMERICAN 13 ML/MIN (>=60); GLUCOSE, SERUM 93 MG/DL (60-99); PHOSPHORUS, SERUM 3.7 MG/DL (2.5-4.5); POTASSIUM, SERUM 4.4 MMOL/L (3.5-5.3); SODIUM, SERUM 140 MMOL/L (135-148)
[2017-03-03 06:15] LABS: EOSINOPHILS 2 %; EOSINOPHILS ABSOLUTE (CALC) 0.13 10/3/uL (0.0-0.53); LYMPHOCYTES 21 %; LYMPHOCYTES ABSOLUTE (CALC) 1.39 10/3/uL (0.67-4.30); MONOCYTES 6 %; NEUTROPHILS ABSOLUTE (CALC) 4.69 10/3/uL (2.02-8.40); PLATELET ESTIMATE ADQ (ADEQUATE); RBC MORPHOLOGY NORM (NORMAL); SEGMENTED NEUTROPHIL (0) 71 %; TOTAL NUCLEATED CELLS 100
[2017-03-04 07:02] LABS: BASOPHILS 0.5 %; BASOPHILS ABSOLUTE 0.03 10/3/uL (0.0-0.16); EOSINOPHILS 4.4 %; EOSINOPHILS ABSOLUTE 0.27 10/3/uL (0.0-0.53); HEMATOCRIT 31.7 % (36.0-48.0); HEMOGLOBIN 10.1 g/dL (12.0-16.0); IMMATURE GRANULOCYTES 0.5 %; IMMATURE GRANULOCYTES ABSOLUTE 0.03 10/3/uL (0.0-0.11); LYMPHOCYTES 24.6 %; LYMPHOCYTES ABSOLUTE 1.52 10/3/uL (0.67-4.30); MANUAL DIFF NO %; MEAN CORPUS HGB CONC 31.9 g/dL (32.0-36.0); MEAN CORPUSCULAR VOLUME 100.3 fL (80-100); MEAN PLATELET VOLUME 9.3 fL (9.2-13.0); MONOCYTES 15.4 %; MONOCYTES ABSOLUTE 0.95 10/3/uL (0.21-1.20); NEUTROPHILS 54.6 %; NEUTROPHILS ABSOLUTE 3.38 10/3/uL (2.02-8.40); PLATELET COUNT 229 10/3/uL (150-400); RBC DISTRIBUTION WIDTH 16.2 % (12.0-16.0); RED CELL COUNT 3.16 10/6/uL (4.0-5.6); WHITE BLOOD CELLS 6.2 10/3/uL (4.5-10.5)
[2017-03-04 07:30] LABS: ALBUMIN 2.2 G/DL (3.5-5.0); CALCIUM, SERUM 8.9 MG/DL (8.5-10.4); CHLORIDE, SERUM 103 MMOL/L (96-112); CO2 (CARBON DIOXIDE) 27 MMOL/L (24-34); GFR AFRICAN AMERICAN 10 ML/MIN (>=60); GFR NON AFRICAN AMERICAN 9 ML/MIN (>=60); GLUCOSE, SERUM 97 MG/DL (60-99); PHOSPHORUS, SERUM 4.6 MG/DL (2.5-4.5); POTASSIUM, SERUM 4.2 MMOL/L (3.5-5.3); SODIUM, SERUM 141 MMOL/L (135-148)
[2017-03-04 07:31] LABS: BUN (BLOOD UREA NITROGEN) 29 MG/DL (6-23); CREATININE 4.87 MG/DL (0.55-1.02)
[2017-03-05 14:35] LABS: BASOPHILS 0.5 %; BASOPHILS ABSOLUTE 0.04 10/3/uL (0.0-0.16); EOSINOPHILS 3.1 %; EOSINOPHILS ABSOLUTE 0.26 10/3/uL (0.0-0.53); HEMATOCRIT 30.8 % (36.0-48.0); HEMOGLOBIN 10.1 g/dL (12.0-16.0); IMMATURE GRANULOCYTES 0.4 %; IMMATURE GRANULOCYTES ABSOLUTE 0.03 10/3/uL (0.0-0.11); LYMPHOCYTES ABSOLUTE 1.74 10/3/uL (0.67-4.30); MANUAL DIFF NO %; MEAN CORPUS HGB CONC 32.8 g/dL (32.0-36.0); MEAN CORPUSCULAR HEMOGLOB 32.5 pg (26.0-34.0); MEAN PLATELET VOLUME 9.6 fL (9.2-13.0); MONOCYTES 15.1 %; MONOCYTES ABSOLUTE 1.25 10/3/uL (0.21-1.20); NEUTROPHILS 59.9 %; NEUTROPHILS ABSOLUTE 4.95 10/3/uL (2.02-8.40); PLATELET COUNT 232 10/3/uL (150-400); RBC DISTRIBUTION WIDTH 16.1 % (12.0-16.0); RED CELL COUNT 3.11 10/6/uL (4.0-5.6); WHITE BLOOD CELLS 8.3 10/3/uL (4.5-10.5)
[2017-03-05 14:58] LABS: ALBUMIN 2.2 G/DL (3.5-5.0); CHLORIDE, SERUM 102 MMOL/L (96-112); CO2 (CARBON DIOXIDE) 27 MMOL/L (24-34); GFR AFRICAN AMERICAN 8 ML/MIN (>=60); GFR NON AFRICAN AMERICAN 7 ML/MIN (>=60); GLUCOSE, SERUM 116 MG/DL (60-99); PHOSPHORUS, SERUM 5.4 MG/DL (2.5-4.5); POTASSIUM, SERUM 4.7 MMOL/L (3.5-5.3); SODIUM, SERUM 138 MMOL/L (135-148)
[2017-03-05 14:59] LABS: BUN (BLOOD UREA NITROGEN) 44 MG/DL (6-23); CREATININE 6.11 MG/DL (0.55-1.02)
[2017-03-06 06:33] LABS: BASOPHILS 0.6 %; BASOPHILS ABSOLUTE 0.04 10/3/uL (0.0-0.16); EOSINOPHILS 2.9 %; HEMATOCRIT 30.4 % (36.0-48.0); HEMOGLOBIN 9.8 g/dL (12.0-16.0); IMMATURE GRANULOCYTES 0.3 %; IMMATURE GRANULOCYTES ABSOLUTE 0.02 10/3/uL (0.0-0.11); LYMPHOCYTES 28.6 %; LYMPHOCYTES ABSOLUTE 1.95 10/3/uL (0.67-4.30); MANUAL DIFF NO %; MEAN CORPUS HGB CONC 32.2 g/dL (32.0-36.0); MEAN CORPUSCULAR HEMOGLOB 32.3 pg (26.0-34.0); MEAN CORPUSCULAR VOLUME 100.3 fL (80-100); MEAN PLATELET VOLUME 9.5 fL (9.2-13.0); MONOCYTES 15.8 %; MONOCYTES ABSOLUTE 1.08 10/3/uL (0.21-1.20); NEUTROPHILS 51.8 %; NEUTROPHILS ABSOLUTE 3.53 10/3/uL (2.02-8.40); PLATELET COUNT 202 10/3/uL (150-400); RBC DISTRIBUTION WIDTH 16.5 % (12.0-16.0); RED CELL COUNT 3.03 10/6/uL (4.0-5.6); WHITE BLOOD CELLS 6.8 10/3/uL (4.5-10.5)
[2017-03-06 06:46] LABS: ALBUMIN 2.7 G/DL (3.5-5.0); BUN (BLOOD UREA NITROGEN) 22 MG/DL (6-23); CHLORIDE, SERUM 106 MMOL/L (96-112); CO2 (CARBON DIOXIDE) 29 MMOL/L (24-34); CREATININE 4.04 MG/DL (0.55-1.02); GFR AFRICAN AMERICAN 13 ML/MIN (>=60); GFR NON AFRICAN AMERICAN 11 ML/MIN (>=60); GLUCOSE, SERUM 92 MG/DL (60-99); PHOSPHORUS, SERUM 3.6 MG/DL (2.5-4.5); POTASSIUM, SERUM 3.9 MMOL/L (3.5-5.3); SODIUM, SERUM 144 MMOL/L (135-148)
[2017-03-06 11:32] LABS: HEMOGLOBIN 10.2 g/dL (12.0-16.0)
[2017-03-07 05:02] LABS: HEMATOCRIT 29.9 % (36.0-48.0); HEMOGLOBIN 9.5 g/dL (12.0-16.0); MEAN CORPUS HGB CONC 31.8 g/dL (32.0-36.0); MEAN CORPUSCULAR HEMOGLOB 32.1 pg (26.0-34.0); MEAN PLATELET VOLUME 9.8 fL (9.2-13.0); PLATELET COUNT 171 10/3/uL (150-400); RBC DISTRIBUTION WIDTH 16.3 % (12.0-16.0); RED CELL COUNT 2.96 10/6/uL (4.0-5.6); WHITE BLOOD CELLS 8.2 10/3/uL (4.5-10.5)
[2017-03-07 05:06] LABS: MANUAL DIFF YES %
[2017-03-07 05:15] LABS: ALBUMIN 2.5 G/DL (3.5-5.0); BUN (BLOOD UREA NITROGEN) 35 MG/DL (6-23); CALCIUM, SERUM 9.3 MG/DL (8.5-10.4); CHLORIDE, SERUM 105 MMOL/L (96-112); CO2 (CARBON DIOXIDE) 29 MMOL/L (24-34); CREATININE 4.97 MG/DL (0.55-1.02); GFR AFRICAN AMERICAN 10 ML/MIN (>=60); GFR NON AFRICAN AMERICAN 9 ML/MIN (>=60); GLUCOSE, SERUM 123 MG/DL (60-99); PHOSPHORUS, SERUM 3.8 MG/DL (2.5-4.5); POTASSIUM, SERUM 4.3 MMOL/L (3.5-5.3); SODIUM, SERUM 142 MMOL/L (135-148)
[2017-03-07 05:39] LABS: BAND NEUTROPHILS 2 %; EOSINOPHILS 3 %; EOSINOPHILS ABSOLUTE (CALC) 0.25 10/3/uL (0.0-0.53); IMMATURE GRANS ABSOLUTE (CALC) 0.08 10/3/uL (0.0-0.11); LYMPHOCYTES 23 %; LYMPHOCYTES ABSOLUTE (CALC) 1.89 10/3/uL (0.67-4.30); METAMYELOCYTES 1 %; MONOCYTES 13 %; MONOCYTES ABSOLUTE (CALC) 1.07 10/3/uL (0.21-1.20); NEUTROPHILS ABSOLUTE (CALC) 4.92 10/3/uL (2.02-8.40); SEGMENTED NEUTROPHIL (0) 58 %; TOTAL NUCLEATED CELLS 100
[2017-03-07 05:40] LABS: MACROCYTES 1+ (5-10/OIF) (0-5/OIF); PLATELET ESTIMATE ADQ (ADEQUATE); RBC MORPHOLOGY ABN (NORMAL)
[2017-03-07 11:03] LABS: BASOPHILS 0.7 %; BASOPHILS ABSOLUTE 0.06 10/3/uL (0.0-0.16); EOSINOPHILS 2.7 %; EOSINOPHILS ABSOLUTE 0.22 10/3/uL (0.0-0.53); HEMATOCRIT 29.6 % (36.0-48.0); HEMOGLOBIN 9.5 g/dL (12.0-16.0); IMMATURE GRANULOCYTES 0.4 %; IMMATURE GRANULOCYTES ABSOLUTE 0.03 10/3/uL (0.0-0.11); LYMPHOCYTES 27.3 %; MEAN CORPUS HGB CONC 32.1 g/dL (32.0-36.0); MEAN CORPUSCULAR HEMOGLOB 32.8 pg (26.0-34.0); MEAN CORPUSCULAR VOLUME 102.1 fL (80-100); MEAN PLATELET VOLUME 9.9 fL (9.2-13.0); MONOCYTES 12.2 %; MONOCYTES ABSOLUTE 0.98 10/3/uL (0.21-1.20); NEUTROPHILS 56.7 %; NEUTROPHILS ABSOLUTE 4.57 10/3/uL (2.02-8.40); PLATELET COUNT 186 10/3/uL (150-400); RBC DISTRIBUTION WIDTH 16.4 % (12.0-16.0); WHITE BLOOD CELLS 8.1 10/3/uL (4.5-10.5)
[2017-03-07 11:05] LABS: MANUAL DIFF NO %
[2017-03-07 11:15] LABS: BUN (BLOOD UREA NITROGEN) 35 MG/DL (6-23); CALCIUM, SERUM 9.1 MG/DL (8.5-10.4); CHLORIDE, SERUM 107 MMOL/L (96-112); CO2 (CARBON DIOXIDE) 24 MMOL/L (24-34); CREATININE 5.13 MG/DL (0.55-1.02); GFR AFRICAN AMERICAN 10 ML/MIN (>=60); GFR NON AFRICAN AMERICAN 8 ML/MIN (>=60); GLUCOSE, SERUM 91 MG/DL (60-99); POTASSIUM, SERUM 4.3 MMOL/L (3.5-5.3); SODIUM, SERUM 141 MMOL/L (135-148)
[2017-03-08 05:53] LABS: BASOPHILS 0.3 %; BASOPHILS ABSOLUTE 0.04 10/3/uL (0.0-0.16); EOSINOPHILS 3.4 %; EOSINOPHILS ABSOLUTE 0.39 10/3/uL (0.0-0.53); HEMOGLOBIN 8.5 g/dL (12.0-16.0); IMMATURE GRANULOCYTES 0.2 %; IMMATURE GRANULOCYTES ABSOLUTE 0.02 10/3/uL (0.0-0.11); LYMPHOCYTES 16.4 %; LYMPHOCYTES ABSOLUTE 1.88 10/3/uL (0.67-4.30); MEAN CORPUS HGB CONC 32.8 g/dL (32.0-36.0); MEAN CORPUSCULAR HEMOGLOB 32.7 pg (26.0-34.0); MEAN CORPUSCULAR VOLUME 99.6 fL (80-100); MEAN PLATELET VOLUME 10.4 fL (9.2-13.0); MONOCYTES 13.6 %; MONOCYTES ABSOLUTE 1.56 10/3/uL (0.21-1.20); NEUTROPHILS 66.1 %; NEUTROPHILS ABSOLUTE 7.57 10/3/uL (2.02-8.40); PLATELET COUNT 167 10/3/uL (150-400); RBC DISTRIBUTION WIDTH 16.4 % (12.0-16.0)
[2017-03-08 05:54] LABS: HEMATOCRIT 25.9 % (36.0-48.0); MANUAL DIFF NO %; WHITE BLOOD CELLS 11.5 10/3/uL (4.5-10.5)
[2017-03-08 07:32] LABS: ALBUMIN 2.2 G/DL (3.5-5.0); CALCIUM, SERUM 8.9 MG/DL (8.5-10.4); CHLORIDE, SERUM 106 MMOL/L (96-112); CO2 (CARBON DIOXIDE) 26 MMOL/L (24-34); CREATININE 5.61 MG/DL (0.55-1.02); GFR AFRICAN AMERICAN 9 ML/MIN (>=60); GFR NON AFRICAN AMERICAN 8 ML/MIN (>=60); GLUCOSE, SERUM 89 MG/DL (60-99); PHOSPHORUS, SERUM 4.6 MG/DL (2.5-4.5); SODIUM, SERUM 141 MMOL/L (135-148)
[2017-03-08 07:33] LABS: BUN (BLOOD UREA NITROGEN) 41 MG/DL (6-23)
[2017-03-09 05:19] LABS: BASOPHILS 0.2 %; BASOPHILS ABSOLUTE 0.03 10/3/uL (0.0-0.16); EOSINOPHILS 2.3 %; EOSINOPHILS ABSOLUTE 0.31 10/3/uL (0.0-0.53); HEMATOCRIT 25.7 % (36.0-48.0); HEMOGLOBIN 8.2 g/dL (12.0-16.0); IMMATURE GRANULOCYTES 0.5 %; IMMATURE GRANULOCYTES ABSOLUTE 0.07 10/3/uL (0.0-0.11); LYMPHOCYTES 18.7 %; LYMPHOCYTES ABSOLUTE 2.51 10/3/uL (0.67-4.30); MEAN CORPUS HGB CONC 31.9 g/dL (32.0-36.0); MEAN CORPUSCULAR HEMOGLOB 32.8 pg (26.0-34.0); MEAN PLATELET VOLUME 10.9 fL (9.2-13.0); MONOCYTES 14.8 %; MONOCYTES ABSOLUTE 1.99 10/3/uL (0.21-1.20); NEUTROPHILS 63.5 %; NEUTROPHILS ABSOLUTE 8.51 10/3/uL (2.02-8.40); PLATELET COUNT 170 10/3/uL (150-400); RBC DISTRIBUTION WIDTH 16.3 % (12.0-16.0); WHITE BLOOD CELLS 13.4 10/3/uL (4.5-10.5)
[2017-03-09 05:20] LABS: ALBUMIN 2.1 G/DL (3.5-5.0); CALCIUM, SERUM 8.5 MG/DL (8.5-10.4); CHLORIDE, SERUM 108 MMOL/L (96-112); CO2 (CARBON DIOXIDE) 29 MMOL/L (24-34); SODIUM, SERUM 146 MMOL/L (135-148)
[2017-03-09 05:20] LABS: MANUAL DIFF NO %; MEAN CORPUSCULAR VOLUME 102.8 fL (80-100)
[2017-03-09 05:27] LABS: BUN (BLOOD UREA NITROGEN) 21 MG/DL (6-23); CREATININE 3.67 MG/DL (0.55-1.02); GFR AFRICAN AMERICAN 15 ML/MIN (>=60); GFR NON AFRICAN AMERICAN 13 ML/MIN (>=60); GLUCOSE, SERUM 109 MG/DL (60-99); PHOSPHORUS, SERUM 3.3 MG/DL (2.5-4.5); POTASSIUM, SERUM 3.9 MMOL/L (3.5-5.3)
[2017-03-10 05:08] LABS: BASOPHILS 0.3 %; BASOPHILS ABSOLUTE 0.03 10/3/uL (0.0-0.16); EOSINOPHILS ABSOLUTE 0.47 10/3/uL (0.0-0.53); HEMATOCRIT 27.3 % (36.0-48.0); HEMOGLOBIN 8.7 g/dL (12.0-16.0); IMMATURE GRANULOCYTES 0.3 %; IMMATURE GRANULOCYTES ABSOLUTE 0.04 10/3/uL (0.0-0.11); LYMPHOCYTES 21.5 %; LYMPHOCYTES ABSOLUTE 2.53 10/3/uL (0.67-4.30); MEAN CORPUS HGB CONC 31.9 g/dL (32.0-36.0); MEAN CORPUSCULAR HEMOGLOB 33.1 pg (26.0-34.0); MEAN CORPUSCULAR VOLUME 103.8 fL (80-100); MONOCYTES 13.7 %; MONOCYTES ABSOLUTE 1.62 10/3/uL (0.21-1.20); NEUTROPHILS 60.2 %; RBC DISTRIBUTION WIDTH 16.3 % (12.0-16.0); RED CELL COUNT 2.63 10/6/uL (4.0-5.6); WHITE BLOOD CELLS 11.8 10/3/uL (4.5-10.5)
[2017-03-10 05:10] LABS: MANUAL DIFF NO %; PLATELET COUNT 227 10/3/uL (150-400)
[2017-03-10 05:18] LABS: ALBUMIN 2.5 G/DL (3.5-5.0); CALCIUM, SERUM 9.2 MG/DL (8.5-10.4); CHLORIDE, SERUM 106 MMOL/L (96-112); CO2 (CARBON DIOXIDE) 29 MMOL/L (24-34); POTASSIUM, SERUM 4.1 MMOL/L (3.5-5.3); SODIUM, SERUM 142 MMOL/L (135-148)
[2017-03-10 05:19] LABS: BUN (BLOOD UREA NITROGEN) 34 MG/DL (6-23); CREATININE 4.82 MG/DL (0.55-1.02); GFR AFRICAN AMERICAN 11 ML/MIN (>=60); GFR NON AFRICAN AMERICAN 9 ML/MIN (>=60); GLUCOSE, SERUM 73 MG/DL (60-99); PHOSPHORUS, SERUM 4.3 MG/DL (2.5-4.5)
[2017-03-11 06:11] LABS: BASOPHILS 0.3 %; BASOPHILS ABSOLUTE 0.03 10/3/uL (0.0-0.16); EOSINOPHILS 3.8 %; EOSINOPHILS ABSOLUTE 0.38 10/3/uL (0.0-0.53); HEMOGLOBIN 9.5 g/dL (12.0-16.0); IMMATURE GRANULOCYTES 0.3 %; IMMATURE GRANULOCYTES ABSOLUTE 0.03 10/3/uL (0.0-0.11); LYMPHOCYTES 31.6 %; LYMPHOCYTES ABSOLUTE 3.19 10/3/uL (0.67-4.30); MEAN CORPUS HGB CONC 31.6 g/dL (32.0-36.0); MEAN CORPUSCULAR VOLUME 104.5 fL (80-100); MEAN PLATELET VOLUME 10.8 fL (9.2-13.0); MONOCYTES 9.9 %; NEUTROPHILS 54.1 %; NEUTROPHILS ABSOLUTE 5.47 10/3/uL (2.02-8.40); PLATELET COUNT 279 10/3/uL (150-400); RBC DISTRIBUTION WIDTH 16.2 % (12.0-16.0); RED CELL COUNT 2.88 10/6/uL (4.0-5.6); WHITE BLOOD CELLS 10.1 10/3/uL (4.5-10.5)
[2017-03-11 06:12] LABS: HEMATOCRIT 30.1 % (36.0-48.0); MANUAL DIFF NO %
[2017-03-11 06:20] LABS: ALBUMIN 2.6 G/DL (3.5-5.0); CHLORIDE, SERUM 105 MMOL/L (96-112); CO2 (CARBON DIOXIDE) 31 MMOL/L (24-34); GLUCOSE, SERUM 74 MG/DL (60-99); POTASSIUM, SERUM 3.7 MMOL/L (3.5-5.3); SODIUM, SERUM 144 MMOL/L (135-148)
[2017-03-11 06:27] LABS: BUN (BLOOD UREA NITROGEN) 19 MG/DL (6-23); CREATININE 3.21 MG/DL (0.55-1.02); GFR AFRICAN AMERICAN 17 ML/MIN (>=60); GFR NON AFRICAN AMERICAN 15 ML/MIN (>=60); PHOSPHORUS, SERUM 2.7 MG/DL (2.5-4.5)
[2017-03-12 08:48] LABS: BASOPHILS 0.2 %; BASOPHILS ABSOLUTE 0.02 10/3/uL (0.0-0.16); EOSINOPHILS ABSOLUTE 0.36 10/3/uL (0.0-0.53); HEMATOCRIT 25.9 % (36.0-48.0); HEMOGLOBIN 8.2 g/dL (12.0-16.0); IMMATURE GRANULOCYTES 0.2 %; IMMATURE GRANULOCYTES ABSOLUTE 0.02 10/3/uL (0.0-0.11); LYMPHOCYTES 22.1 %; LYMPHOCYTES ABSOLUTE 2.01 10/3/uL (0.67-4.30); MEAN CORPUS HGB CONC 31.7 g/dL (32.0-36.0); MEAN CORPUSCULAR HEMOGLOB 32.4 pg (26.0-34.0); MEAN CORPUSCULAR VOLUME 102.4 fL (80-100); MEAN PLATELET VOLUME 10.5 fL (9.2-13.0); MONOCYTES 13.7 %; MONOCYTES ABSOLUTE 1.25 10/3/uL (0.21-1.20); NEUTROPHILS 59.8 %; NEUTROPHILS ABSOLUTE 5.45 10/3/uL (2.02-8.40); PLATELET COUNT 233 10/3/uL (150-400); RBC DISTRIBUTION WIDTH 15.9 % (12.0-16.0); RED CELL COUNT 2.53 10/6/uL (4.0-5.6); WHITE BLOOD CELLS 9.1 10/3/uL (4.5-10.5)
[2017-03-12 08:49] LABS: MANUAL DIFF NO %
[2017-03-12 09:06] LABS: ALBUMIN 2.2 G/DL (3.5-5.0); CALCIUM, SERUM 9.1 MG/DL (8.5-10.4); CHLORIDE, SERUM 106 MMOL/L (96-112); CO2 (CARBON DIOXIDE) 28 MMOL/L (24-34); POTASSIUM, SERUM 4.4 MMOL/L (3.5-5.3); SODIUM, SERUM 141 MMOL/L (135-148)
[2017-03-12 09:13] LABS: BUN (BLOOD UREA NITROGEN) 30 MG/DL (6-23); CREATININE 4.53 MG/DL (0.55-1.02); GFR AFRICAN AMERICAN 11 ML/MIN (>=60); GFR NON AFRICAN AMERICAN 10 ML/MIN (>=60); GLUCOSE, SERUM 115 MG/DL (60-99); PHOSPHORUS, SERUM 3.7 MG/DL (2.5-4.5)
[2017-03-14 04:15] LABS: BASOPHILS 0.3 %; BASOPHILS ABSOLUTE 0.03 10/3/uL (0.0-0.16); EOSINOPHILS 4.9 %; EOSINOPHILS ABSOLUTE 0.48 10/3/uL (0.0-0.53); HEMATOCRIT 25.2 % (36.0-48.0); IMMATURE GRANULOCYTES 0.3 %; IMMATURE GRANULOCYTES ABSOLUTE 0.03 10/3/uL (0.0-0.11); LYMPHOCYTES 25.5 %; LYMPHOCYTES ABSOLUTE 2.51 10/3/uL (0.67-4.30); MEAN CORPUS HGB CONC 31.7 g/dL (32.0-36.0); MEAN CORPUSCULAR HEMOGLOB 32.9 pg (26.0-34.0); MEAN CORPUSCULAR VOLUME 103.7 fL (80-100); MEAN PLATELET VOLUME 9.6 fL (9.2-13.0); MONOCYTES 11.7 %; MONOCYTES ABSOLUTE 1.15 10/3/uL (0.21-1.20); NEUTROPHILS 57.3 %; NEUTROPHILS ABSOLUTE 5.66 10/3/uL (2.02-8.40); PLATELET COUNT 230 10/3/uL (150-400); RBC DISTRIBUTION WIDTH 16.2 % (12.0-16.0); RED CELL COUNT 2.43 10/6/uL (4.0-5.6); WHITE BLOOD CELLS 9.9 10/3/uL (4.5-10.5)
[2017-03-14 04:19] LABS: MANUAL DIFF NO %
[2017-03-14 04:32] LABS: ALBUMIN 2.2 G/DL (3.5-5.0); BUN (BLOOD UREA NITROGEN) 28 MG/DL (6-23); CALCIUM, SERUM 8.6 MG/DL (8.5-10.4); CHLORIDE, SERUM 109 MMOL/L (96-112); CO2 (CARBON DIOXIDE) 25 MMOL/L (24-34); CREATININE 4.18 MG/DL (0.55-1.02); GFR AFRICAN AMERICAN 12 ML/MIN (>=60); GFR NON AFRICAN AMERICAN 11 ML/MIN (>=60); GLUCOSE, SERUM 109 MG/DL (60-99); PHOSPHORUS, SERUM 3.3 MG/DL (2.5-4.5); SODIUM, SERUM 145 MMOL/L (135-148)
[2017-03-16 05:30] LABS: BASOPHILS 0.3 %; BASOPHILS ABSOLUTE 0.03 10/3/uL (0.0-0.16); EOSINOPHILS 4.5 %; EOSINOPHILS ABSOLUTE 0.43 10/3/uL (0.0-0.53); HEMATOCRIT 23.2 % (36.0-48.0); HEMOGLOBIN 7.6 g/dL (12.0-16.0); IMMATURE GRANULOCYTES 0.3 %; IMMATURE GRANULOCYTES ABSOLUTE 0.03 10/3/uL (0.0-0.11); LYMPHOCYTES 20.9 %; LYMPHOCYTES ABSOLUTE 2.01 10/3/uL (0.67-4.30); MEAN CORPUS HGB CONC 32.8 g/dL (32.0-36.0); MEAN CORPUSCULAR HEMOGLOB 32.9 pg (26.0-34.0); MEAN PLATELET VOLUME 9.9 fL (9.2-13.0); MONOCYTES 11.4 %; NEUTROPHILS 62.6 %; NEUTROPHILS ABSOLUTE 6.01 10/3/uL (2.02-8.40); PLATELET COUNT 236 10/3/uL (150-400); RBC DISTRIBUTION WIDTH 16.4 % (12.0-16.0); RED CELL COUNT 2.31 10/6/uL (4.0-5.6); WHITE BLOOD CELLS 9.6 10/3/uL (4.5-10.5)
[2017-03-16 05:34] LABS: ALBUMIN 2.4 G/DL (3.5-5.0); BUN (BLOOD UREA NITROGEN) 27 MG/DL (6-23); CALCIUM, SERUM 8.4 MG/DL (8.5-10.4); CHLORIDE, SERUM 108 MMOL/L (96-112); CO2 (CARBON DIOXIDE) 24 MMOL/L (24-34); CREATININE 4.05 MG/DL (0.55-1.02); GFR AFRICAN AMERICAN 13 ML/MIN (>=60); GFR NON AFRICAN AMERICAN 11 ML/MIN (>=60); PHOSPHORUS, SERUM 3.9 MG/DL (2.5-4.5); POTASSIUM, SERUM 3.7 MMOL/L (3.5-5.3); SODIUM, SERUM 143 MMOL/L (135-148)
[2017-03-16 05:35] LABS: MANUAL DIFF NO %; MEAN CORPUSCULAR VOLUME 100.4 fL (80-100)
[2017-03-16 05:52] LABS: GLUCOSE, SERUM 147 MG/DL (60-99)
[2017-03-17 05:09] LABS: BASOPHILS 0.5 %; BASOPHILS ABSOLUTE 0.04 10/3/uL (0.0-0.16); EOSINOPHILS 4.9 %; EOSINOPHILS ABSOLUTE 0.39 10/3/uL (0.0-0.53); HEMATOCRIT 23.4 % (36.0-48.0); HEMOGLOBIN 7.5 g/dL (12.0-16.0); IMMATURE GRANULOCYTES 0.4 %; IMMATURE GRANULOCYTES ABSOLUTE 0.03 10/3/uL (0.0-0.11); LYMPHOCYTES 24.3 %; LYMPHOCYTES ABSOLUTE 1.92 10/3/uL (0.67-4.30); MEAN CORPUS HGB CONC 32.1 g/dL (32.0-36.0); MEAN CORPUSCULAR HEMOGLOB 32.9 pg (26.0-34.0); MEAN CORPUSCULAR VOLUME 102.6 fL (80-100); MEAN PLATELET VOLUME 9.6 fL (9.2-13.0); MONOCYTES 11.1 %; MONOCYTES ABSOLUTE 0.88 10/3/uL (0.21-1.20); NEUTROPHILS 58.8 %; NEUTROPHILS ABSOLUTE 4.64 10/3/uL (2.02-8.40); PLATELET COUNT 220 10/3/uL (150-400); RBC DISTRIBUTION WIDTH 16.5 % (12.0-16.0); RED CELL COUNT 2.28 10/6/uL (4.0-5.6); WHITE BLOOD CELLS 7.9 10/3/uL (4.5-10.5)
[2017-03-17 05:13] LABS: MANUAL DIFF NO %
[2017-03-17 05:32] LABS: ALBUMIN 2.4 G/DL (3.5-5.0); CALCIUM, SERUM 8.6 MG/DL (8.5-10.4); CHLORIDE, SERUM 109 MMOL/L (96-112); CO2 (CARBON DIOXIDE) 26 MMOL/L (24-34); GFR AFRICAN AMERICAN 21 ML/MIN (>=60); GFR NON AFRICAN AMERICAN 18 ML/MIN (>=60); GLUCOSE, SERUM 157 MG/DL (60-99); PHOSPHORUS, SERUM 3.4 MG/DL (2.5-4.5); POTASSIUM, SERUM 3.8 MMOL/L (3.5-5.3); SODIUM, SERUM 146 MMOL/L (135-148)
[2017-03-17 05:35] LABS: BUN (BLOOD UREA NITROGEN) 19 MG/DL (6-23); CREATININE 2.71 MG/DL (0.55-1.02)
[2017-03-18 06:33] LABS: BASOPHILS 0.7 %; BASOPHILS ABSOLUTE 0.06 10/3/uL (0.0-0.16); EOSINOPHILS 5.8 %; EOSINOPHILS ABSOLUTE 0.53 10/3/uL (0.0-0.53); HEMOGLOBIN 8.7 g/dL (12.0-16.0); IMMATURE GRANULOCYTES 0.3 %; IMMATURE GRANULOCYTES ABSOLUTE 0.03 10/3/uL (0.0-0.11); LYMPHOCYTES 24.2 %; LYMPHOCYTES ABSOLUTE 2.21 10/3/uL (0.67-4.30); MEAN CORPUSCULAR HEMOGLOB 33.3 pg (26.0-34.0); MEAN CORPUSCULAR VOLUME 101.1 fL (80-100); MEAN PLATELET VOLUME 9.8 fL (9.2-13.0); MONOCYTES 8.9 %; MONOCYTES ABSOLUTE 0.81 10/3/uL (0.21-1.20); NEUTROPHILS 60.1 %; NEUTROPHILS ABSOLUTE 5.51 10/3/uL (2.02-8.40); RBC DISTRIBUTION WIDTH 16.4 % (12.0-16.0); RED CELL COUNT 2.61 10/6/uL (4.0-5.6); WHITE BLOOD CELLS 9.2 10/3/uL (4.5-10.5)
[2017-03-18 06:35] LABS: HEMATOCRIT 26.4 % (36.0-48.0); MANUAL DIFF NO %; PLATELET COUNT 300 10/3/uL (150-400)
[2017-03-18 06:47] LABS: ALBUMIN 2.8 G/DL (3.5-5.0); BUN (BLOOD UREA NITROGEN) 31 MG/DL (6-23); CALCIUM, SERUM 9.1 MG/DL (8.5-10.4); CHLORIDE, SERUM 106 MMOL/L (96-112); CO2 (CARBON DIOXIDE) 29 MMOL/L (24-34); CREATININE 3.92 MG/DL (0.55-1.02); GFR AFRICAN AMERICAN 14 ML/MIN (>=60); GFR NON AFRICAN AMERICAN 12 ML/MIN (>=60); GLUCOSE, SERUM 114 MG/DL (60-99); PHOSPHORUS, SERUM 4.2 MG/DL (2.5-4.5); POTASSIUM, SERUM 3.7 MMOL/L (3.5-5.3); SODIUM, SERUM 142 MMOL/L (135-148)
[2017-03-19 04:54] LABS: BASOPHILS 0.4 %; BASOPHILS ABSOLUTE 0.04 10/3/uL (0.0-0.16); EOSINOPHILS ABSOLUTE 0.62 10/3/uL (0.0-0.53); HEMATOCRIT 23.6 % (36.0-48.0); HEMOGLOBIN 7.7 g/dL (12.0-16.0); IMMATURE GRANULOCYTES 0.2 %; IMMATURE GRANULOCYTES ABSOLUTE 0.02 10/3/uL (0.0-0.11); LYMPHOCYTES 25.5 %; LYMPHOCYTES ABSOLUTE 2.27 10/3/uL (0.67-4.30); MANUAL DIFF NO %; MEAN CORPUS HGB CONC 32.6 g/dL (32.0-36.0); MEAN CORPUSCULAR HEMOGLOB 32.9 pg (26.0-34.0); MEAN CORPUSCULAR VOLUME 100.9 fL (80-100); MEAN PLATELET VOLUME 9.7 fL (9.2-13.0); MONOCYTES 13.1 %; MONOCYTES ABSOLUTE 1.17 10/3/uL (0.21-1.20); NEUTROPHILS 53.8 %; NEUTROPHILS ABSOLUTE 4.79 10/3/uL (2.02-8.40); PLATELET COUNT 246 10/3/uL (150-400); RBC DISTRIBUTION WIDTH 16.3 % (12.0-16.0); RED CELL COUNT 2.34 10/6/uL (4.0-5.6); WHITE BLOOD CELLS 8.9 10/3/uL (4.5-10.5)
[2017-03-19 05:08] LABS: ALBUMIN 2.4 G/DL (3.5-5.0); BUN (BLOOD UREA NITROGEN) 42 MG/DL (6-23); CALCIUM, SERUM 8.8 MG/DL (8.5-10.4); CHLORIDE, SERUM 108 MMOL/L (96-112); CO2 (CARBON DIOXIDE) 24 MMOL/L (24-34); CREATININE 4.89 MG/DL (0.55-1.02); GFR AFRICAN AMERICAN 10 ML/MIN (>=60); GFR NON AFRICAN AMERICAN 9 ML/MIN (>=60); GLUCOSE, SERUM 127 MG/DL (60-99); PHOSPHORUS, SERUM 5.3 MG/DL (2.5-4.5); SODIUM, SERUM 145 MMOL/L (135-148); VANCOMYCIN TROUGH 14.6 MCG/ML (10.0-20.0)
[2017-03-19 19:15] LABS: HEMATOCRIT 25.4 % (36.0-48.0); HEMOGLOBIN 8.3 g/dL (12.0-16.0); MEAN CORPUS HGB CONC 32.7 g/dL (32.0-36.0); MEAN CORPUSCULAR HEMOGLOB 33.1 pg (26.0-34.0); MEAN CORPUSCULAR VOLUME 101.2 fL (80-100); MEAN PLATELET VOLUME 9.5 fL (9.2-13.0); PLATELET COUNT 260 10/3/uL (150-400); RBC DISTRIBUTION WIDTH 16.1 % (12.0-16.0); RED CELL COUNT 2.51 10/6/uL (4.0-5.6); WHITE BLOOD CELLS 9.4 10/3/uL (4.5-10.5)
[2017-03-19 19:21] LABS: MANUAL DIFF YES %
[2017-03-19 19:48] LABS: BAND NEUTROPHILS 4 %; BASOPHILS 1 %; BASOPHILS ABSOLUTE (CALC) 0.09 10/3/uL (0.0-0.16); EOSINOPHILS 3 %; EOSINOPHILS ABSOLUTE (CALC) 0.28 10/3/uL (0.0-0.53); IMMATURE GRANS ABSOLUTE (CALC) 0.09 10/3/uL (0.0-0.11); LYMPHOCYTES 17 %; METAMYELOCYTES 1 %; MONOCYTES 4 %; MONOCYTES ABSOLUTE (CALC) 0.38 10/3/uL (0.21-1.20); NEUTROPHILS ABSOLUTE (CALC) 6.96 10/3/uL (2.02-8.40); SEGMENTED NEUTROPHIL (0) 70 %; TOTAL NUCLEATED CELLS 100
[2017-03-19 19:51] LABS: GIANT PLATELET RARE; MACROCYTES 1+ (5-10/OIF) (0-5/OIF); PLATELET ESTIMATE ADQ (ADEQUATE)
[2017-03-21 05:04] LABS: BASOPHILS 0.3 %; BASOPHILS ABSOLUTE 0.03 10/3/uL (0.0-0.16); EOSINOPHILS 4.9 %; EOSINOPHILS ABSOLUTE 0.46 10/3/uL (0.0-0.53); IMMATURE GRANULOCYTES 0.2 %; IMMATURE GRANULOCYTES ABSOLUTE 0.02 10/3/uL (0.0-0.11); LYMPHOCYTES 38.5 %; LYMPHOCYTES ABSOLUTE 3.65 10/3/uL (0.67-4.30); MEAN CORPUS HGB CONC 31.8 g/dL (32.0-36.0); MEAN CORPUSCULAR HEMOGLOB 32.4 pg (26.0-34.0); MEAN CORPUSCULAR VOLUME 101.9 fL (80-100); MEAN PLATELET VOLUME 9.4 fL (9.2-13.0); MONOCYTES 12.8 %; MONOCYTES ABSOLUTE 1.21 10/3/uL (0.21-1.20); NEUTROPHILS 43.3 %; PLATELET COUNT 200 10/3/uL (150-400); RBC DISTRIBUTION WIDTH 16.1 % (12.0-16.0); RED CELL COUNT 2.13 10/6/uL (4.0-5.6); WHITE BLOOD CELLS 9.5 10/3/uL (4.5-10.5)
[2017-03-21 05:23] LABS: HEMOGLOBIN 6.9 g/dL (12.0-16.0)
[2017-03-21 05:24] LABS: ALBUMIN 2.3 G/DL (3.5-5.0); BUN (BLOOD UREA NITROGEN) 35 MG/DL (6-23); CALCIUM, SERUM 8.5 MG/DL (8.5-10.4); CHLORIDE, SERUM 108 MMOL/L (96-112); CO2 (CARBON DIOXIDE) 27 MMOL/L (24-34); GFR AFRICAN AMERICAN 13 ML/MIN (>=60); GFR NON AFRICAN AMERICAN 11 ML/MIN (>=60); GLUCOSE, SERUM 120 MG/DL (60-99); HEMATOCRIT 21.7 % (36.0-48.0); PHOSPHORUS, SERUM 5.2 MG/DL (2.5-4.5); SODIUM, SERUM 144 MMOL/L (135-148)
[2017-03-21 05:25] LABS: MANUAL DIFF NO %
[2017-03-23 08:55] LABS: BASOPHILS 0.2 %; BASOPHILS ABSOLUTE 0.02 10/3/uL (0.0-0.16); EOSINOPHILS 7.1 %; EOSINOPHILS ABSOLUTE 0.72 10/3/uL (0.0-0.53); IMMATURE GRANULOCYTES 0.3 %; IMMATURE GRANULOCYTES ABSOLUTE 0.03 10/3/uL (0.0-0.11); LYMPHOCYTES 18.4 %; LYMPHOCYTES ABSOLUTE 1.85 10/3/uL (0.67-4.30); MEAN CORPUSCULAR HEMOGLOB 32.1 pg (26.0-34.0); MEAN PLATELET VOLUME 9.9 fL (9.2-13.0); MONOCYTES 11.2 %; MONOCYTES ABSOLUTE 1.13 10/3/uL (0.21-1.20); NEUTROPHILS 62.8 %; NEUTROPHILS ABSOLUTE 6.33 10/3/uL (2.02-8.40); PLATELET COUNT 207 10/3/uL (150-400); RBC DISTRIBUTION WIDTH 17.5 % (12.0-16.0); WHITE BLOOD CELLS 10.1 10/3/uL (4.5-10.5)
[2017-03-23 08:57] LABS: HEMATOCRIT 28.9 % (36.0-48.0); HEMOGLOBIN 9.7 g/dL (12.0-16.0); MANUAL DIFF NO %; MEAN CORPUS HGB CONC 33.6 g/dL (32.0-36.0); MEAN CORPUSCULAR VOLUME 95.7 fL (80-100); RED CELL COUNT 3.02 10/6/uL (4.0-5.6)
[2017-03-23 09:35] LABS: CALCIUM, SERUM 8.4 MG/DL (8.5-10.4); CHLORIDE, SERUM 108 MMOL/L (96-112); CO2 (CARBON DIOXIDE) 23 MMOL/L (24-34); CREATININE 4.21 MG/DL (0.55-1.02); GFR AFRICAN AMERICAN 12 ML/MIN (>=60); GFR NON AFRICAN AMERICAN 11 ML/MIN (>=60); PHOSPHORUS, SERUM 5.9 MG/DL (2.5-4.5); POTASSIUM, SERUM 4.4 MMOL/L (3.5-5.3); SODIUM, SERUM 145 MMOL/L (135-148)
[2017-03-23 09:36] LABS: ALBUMIN 2.8 G/DL (3.5-5.0); BUN (BLOOD UREA NITROGEN) 45 MG/DL (6-23); GLUCOSE, SERUM 269 MG/DL (60-99)
[2017-03-26 10:43] LABS: BASOPHILS 0.2 %; BASOPHILS ABSOLUTE 0.01 10/3/uL (0.0-0.16); EOSINOPHILS 6.3 %; EOSINOPHILS ABSOLUTE 0.41 10/3/uL (0.0-0.53); HEMATOCRIT 27.4 % (36.0-48.0); HEMOGLOBIN 9.3 g/dL (12.0-16.0); IMMATURE GRANULOCYTES 0.3 %; IMMATURE GRANULOCYTES ABSOLUTE 0.02 10/3/uL (0.0-0.11); LYMPHOCYTES 20.6 %; LYMPHOCYTES ABSOLUTE 1.33 10/3/uL (0.67-4.30); MANUAL DIFF NO %; MEAN CORPUS HGB CONC 33.9 g/dL (32.0-36.0); MEAN CORPUSCULAR HEMOGLOB 32.4 pg (26.0-34.0); MEAN CORPUSCULAR VOLUME 95.5 fL (80-100); MEAN PLATELET VOLUME 10.5 fL (9.2-13.0); MONOCYTES 7.3 %; MONOCYTES ABSOLUTE 0.47 10/3/uL (0.21-1.20); NEUTROPHILS 65.3 %; NEUTROPHILS ABSOLUTE 4.22 10/3/uL (2.02-8.40); PLATELET COUNT 161 10/3/uL (150-400); RBC DISTRIBUTION WIDTH 16.3 % (12.0-16.0); RED CELL COUNT 2.87 10/6/uL (4.0-5.6); WHITE BLOOD CELLS 6.5 10/3/uL (4.5-10.5)
[2017-03-26 10:52] LABS: ALBUMIN 2.5 G/DL (3.5-5.0); BUN (BLOOD UREA NITROGEN) 35 MG/DL (6-23); CALCIUM, SERUM 8.8 MG/DL (8.5-10.4); CHLORIDE, SERUM 109 MMOL/L (96-112); CO2 (CARBON DIOXIDE) 26 MMOL/L (24-34); CREATININE 3.54 MG/DL (0.55-1.02); GFR AFRICAN AMERICAN 15 ML/MIN (>=60); GFR NON AFRICAN AMERICAN 13 ML/MIN (>=60); GLUCOSE, SERUM 142 MG/DL (60-99); PHOSPHORUS, SERUM 4.2 MG/DL (2.5-4.5); POTASSIUM, SERUM 3.4 MMOL/L (3.5-5.3); SODIUM, SERUM 144 MMOL/L (135-148)
[2017-03-26 11:02] LABS: PREALBUMIN 21.4 MG/DL (17.0-43.0)
[2017-03-28 05:07] LABS: VANCOMYCIN TROUGH 18.4 MCG/ML (10.0-20.0)
[2017-03-28 13:24] LABS: BASOPHILS 0.2 %; BASOPHILS ABSOLUTE 0.02 10/3/uL (0.0-0.16); EOSINOPHILS 4.6 %; HEMATOCRIT 28.1 % (36.0-48.0); HEMOGLOBIN 9.4 g/dL (12.0-16.0); IMMATURE GRANULOCYTES 0.3 %; IMMATURE GRANULOCYTES ABSOLUTE 0.03 10/3/uL (0.0-0.11); LYMPHOCYTES 13.9 %; LYMPHOCYTES ABSOLUTE 1.52 10/3/uL (0.67-4.30); MEAN CORPUS HGB CONC 33.5 g/dL (32.0-36.0); MEAN CORPUSCULAR HEMOGLOB 32.6 pg (26.0-34.0); MEAN CORPUSCULAR VOLUME 97.6 fL (80-100); MEAN PLATELET VOLUME 9.8 fL (9.2-13.0); MONOCYTES ABSOLUTE 1.42 10/3/uL (0.21-1.20); NEUTROPHILS ABSOLUTE 7.42 10/3/uL (2.02-8.40); PLATELET COUNT 171 10/3/uL (150-400); RBC DISTRIBUTION WIDTH 16.5 % (12.0-16.0); RED CELL COUNT 2.88 10/6/uL (4.0-5.6)
[2017-03-28 13:27] LABS: MANUAL DIFF NO %; WHITE BLOOD CELLS 10.9 10/3/uL (4.5-10.5)
[2017-03-28 13:47] LABS: ALBUMIN 2.6 G/DL (3.5-5.0); BUN (BLOOD UREA NITROGEN) 49 MG/DL (6-23); CALCIUM, SERUM 8.8 MG/DL (8.5-10.4); CHLORIDE, SERUM 108 MMOL/L (96-112); CO2 (CARBON DIOXIDE) 24 MMOL/L (24-34); CREATININE 5.44 MG/DL (0.55-1.02); GFR AFRICAN AMERICAN 9 ML/MIN (>=60); GFR NON AFRICAN AMERICAN 8 ML/MIN (>=60); GLUCOSE, SERUM 86 MG/DL (60-99); PHOSPHORUS, SERUM 6.3 MG/DL (2.5-4.5); POTASSIUM, SERUM 4.4 MMOL/L (3.5-5.3); SODIUM, SERUM 145 MMOL/L (135-148)
== END 2017-03-29 06:47 | DRG 901 ==
LOC: SDC/OF 06:33 → 5NO 11:58
PROVIDERS: Internal Medicine Infectious Disease; Internal Medicine Nephrology; Nurse Practitioner; Registered Nurse; Student in an Organized Health Care Education/Training Program; Thoracic Surgery (Cardiothoracic Vascular Surgery)
PROC: 0JB60ZZ Excision of Chest Subcutaneous Tissue and Fascia, Open Approach (ICD-10-PCS; principal; 2017-02-28 07:45)
PROC: 2W04X6Z Change Pressure Dressing on Chest Wall (ICD-10-PCS; 2017-03-02)
PROC: 5A1D60Z (ICD-10-PCS; 2017-03-02)
PROC: 0KX Muscles, Transfer (ICD-10-PCS; 2017-03-07)
PROC: 05PY03Z Removal of Infusion Device from Upper Vein, Open Approach (ICD-10-PCS; 2017-03-07)
PROC: 0JQ60ZZ Repair Chest Subcutaneous Tissue and Fascia, Open Approach (ICD-10-PCS; 2017-03-07 07:45)
PROC: 0KX Muscles, Transfer (ICD-10-PCS; 2017-03-07 07:45)
PROC: 0KBJ0ZZ Excision of Left Thorax Muscle, Open Approach (ICD-10-PCS; 2017-03-19)
PROC: 0KBH0ZZ Excision of Right Thorax Muscle, Open Approach (ICD-10-PCS; 2017-03-19)
PROC: 30233N1 Transfusion of Nonautologous Red Blood Cells into Peripheral Vein, Percutaneous Approach (ICD-10-PCS; 2017-03-21)
DX: T81.89XA Other complications of procedures, not elsewhere classified, initial encounter (principal); N18.6 End stage renal disease; L89.153 Pressure ulcer of sacral region, stage 3; T81.32XA Disruption of internal operation (surgical) wound, not elsewhere classified, initial encounter; I12.0 Hypertensive chronic kidney disease with stage 5 chronic kidney disease or end stage renal disease; E11.22 Type 2 diabetes mellitus with diabetic chronic kidney disease; Z95.1 Presence of aortocoronary bypass graft; I25.10 Atherosclerotic heart disease of native coronary artery without angina pectoris; E78.5 Hyperlipidemia, unspecified; Z79.4 Long term (current) use of insulin; D63.1 Anemia in chronic kidney disease; Z99.2 Dependence on renal dialysis; J44.9 Chronic obstructive pulmonary disease, unspecified
CPT/HCPCS: 36415; 71010; 71020; 71275; 80048; 80069; 80202; 81001; 82330; 82803; 82947; 82962; 83036; 83735; 83880; 84100; 84132; 84134; 84295; 85014; 85018; 85025; 85610; 85730; 86850; 86900; 86901; 86920; 87015; 87070; 87075; 87077; 87102; 87116; 87186; 87205; 87493; 87493-59; 93005; 94640; 97110-GO; 97110-GP; 97116-GP; 97163-GP; 97164-GP; 97167-GO; 97530-GP; 97535-GO; A9270-GY; G0257; J0295; J0690; J0692; J0885; J2250; J2370; J2405; J2710; J3010; J3370; P9016; P9045; P9047; Q9967